=== PATIENT | male | born 1985 | race Caucasian/White ===

== ENCOUNTER 2023-11-21 22:53 | Emergency (ER) | payer MEDICAID, SELFPAY ==
[2023-11-21] VITALS (13 sets, daily range): BP systolic 77–132; BP diastolic 42–74; PULSE 75–85; RESP 11–19; TEMP 36.6; O2SAT 88–99
--- NOTE | 2023-11-21 22:45 | DI.RAD_ITS ---
Exam(s) XR PORTABLE CHEST AP EXAM: XR PORTABLE CHEST AP CLINICAL HISTORY: cough, overdose with vomiting TECHNIQUE: 2D digital imaging was performed. COMPARISON: No exams were available for comparison FINDINGS: Exam is limited by leads overlying the chest. LUNGS: Clear. No pleural abnormality seen. HEART: Normal size. AORTA: Normal diameter. BONES: Unremarkable for age. Soft tissues: Unremarkable. IMPRESSION: No acute findings. DATA REPOSITORY: RADIATION DOSE DELIVERED:
--- NOTE | 2023-11-21 22:45 | RT.EKG_ITS ---
APPROVED REPORT Exam: Resting ECG Reason for Exam: overdose Patient Location: E HR:79 bpm ECG Measurements Heart Rate 79 AXIS UT 169 P 54 QRSd 91 QRS 59 QT 383 T 26 QTc 440 Conclusion Sinus rhythm...normal P axis, V-rate 60- [address] segment or t wave abnormalities to suggest occlusive PR
[2023-11-21 23:06] LABS: BE (Venous) -2 mmol/L (-2-3); HCO3 (Venous) 24 mmol/L (23-28); O2 Sat (Venous) 85 %; TCO2 (Venous) 22 mmol/L (24-29); pCO2 (Venous) 48 mmHg (41-51); pH (Venous) 7.32 (7.31-7.41); pO2 (Venous) 50 mmHg
[2023-11-21 23:09] LABS: Abs Immature Grans 0.04 10^3/uL (0.0-0.06); Absolute Basophil Count 0.02 10^3/uL (0.0-0.2); Absolute Eosinophil Count 0.07 10^3/uL (0.0-0.7); Absolute Lymphocyte Count 1.78 10^3/uL (1.2-3.4); Absolute Monocyte Count 0.34 10^3/uL (0.1-0.8); Absolute Neutrophil Count 3.19 10^3/uL (1.2-6.7); Basophils % 0.4; Eosinophils % 1.3; HCT 38.2 % (40.0-50.0); HGB 12.9 g/dL (13.5-17.5); Immature Grans % 0.7; Lymphocytes % 32.7; MCH 28.5 pg (27.0-33.0); MCHC 33.8 % (32.0-36.0); MCV 84 fL (80-95); MPV 10.2 fL (8.0-11.0); Monocytes % 6.3; Neutrophils % 58.6; Platelet Count 193 10^3/uL (130-400); RBC 4.53 10^6/uL (4.36-5.78); RDW 12.6 % (11.8-14.1); RDW-SD 38.2 fL; WBC 5.44 10^3/uL (4.4-10.8)
[2023-11-21] MEDS: Ondansetron 4 MG/2 ML VIAL IVP (23:13)
[2023-11-21 23:23] LABS: ALT 53 U/L (16-63); AST 40 U/L (15-37); Albumin 3.9 g/dL (3.4-5.0); Alkaline Phosphatase 78 U/L (46-116); Anion Gap 12.9 mmol/L (3-11); BUN 12 mg/dL (7-18); Bilirubin, Total 0.3 mg/dL (0.2-1.0); CO2 26.1 mmol/L (21.0-32.0); CREATININE 1.3 mg/dL (0.70-1.30); Calcium 8.4 mg/dL (8.5-10.1); Chloride 98 mmol/L (98-107); Estimated GFR 72.56 (mL/min/1.73m2); Glucose 285 mg/dL (74-106); Potassium 3.1 mmol/L (3.5-5.1); Sodium 137 mmol/L (136-145); Total Protein 6.9 g/dL (6.4-8.2)
[2023-11-21] MEDS: Normal Saline 1,000 ML 1000 ML IV (23:41)
--- NOTE | 2023-11-21 23:55 | DI.VRAD_ITS ---
PROCEDURE INFORMATION: Exam: XR Chest Exam date and time: 11/21/2023 11:11 PM Age: 38 years old Clinical indication: Patient HX: Cough, od with vomiting TECHNIQUE: Imaging protocol: Radiologic exam of the chest. Views: 1 view. COMPARISON: No relevant prior studies available. FINDINGS: Lungs: Unremarkable. No consolidation. Pleural spaces: Unremarkable. No pleural effusion. No pneumothorax. Heart/Mediastinum: Unremarkable. No cardiomegaly. Bones/joints: Unremarkable. IMPRESSION: No acute findings. Dictated and Authenticated by: Mino Ni MD. Ordering:ANTHONY Mcdowell MD
[2023-11-22] VITALS (73 sets, daily range): BP systolic 71–140; BP diastolic 37–80; PULSE 50–94; RESP 12–25; O2SAT 88–100
--- NOTE | 2023-11-22 00:35 | W.ED.GENAD ---
Discharge Plan Discharge Details Chief Complaint: OD/Poison Primary Care Provider: None,None ED Provider: July Guajardo [facility] General Mode of arrival: EMS. Date/Time Provider Initiated Documentation: 11/21/23 22:59. Limitations to Documentation: altered mental status. Information obtained by: patient and EMS. HPI Narrative: 38yo M unknown past medical history presenting via EMS for unresponsiveness. Bystander found patient unresponsive in bathroom, called 911; on their arrival he was unresponsive, hypoxic to 60's, needle in his arm and drug paraphenalia present. Treated with one dose of intranasal narcan and provided with BVM which improved his sat to 90+. Subsequently somewhat more responsive with some respiratory effort; given 1mg IV Narcan after which he became more alert. Would not answer questions regarding drug ingestion. Did vomit during transport. Rousable to touch on arrival, provides no medical history but will answer yes/no ROS questions; denies chest pain or shortness of breath at any point, denies nausea currently. No fevers, chills, abdominal pain, numbness, weakness, or other concerns. General Stated Complaint: OD/Poison FRED: 3 Review of Systems Narrative: see HPI Exam Narrative Exam Narrative: General: Eyes closed, resonsive to touch. Head: Normocephalic, atraumatic Neck: Trachea midline, ?Neck supple. ENT: ?MMM.? Cardiac: ?RRR, no murmurs appreciated Resp: No respiratory distress. CTAB. +cough Abd: ?Soft, non-distended, nontender : ?No suprapubic tenderness. Extremities: ?No deformities.? No peripheral edema. Neuro: ? GCS 13.(E3 V4 M6). ? PERRL.? EOMI.? Motor- 5/5 strength symmetric bilateral upper and lower extremities Sensation- ?Intact to light touch and symmetric multiple dermatomes including upper and lower extremities Course Vital Signs Vital signs: Vital Signs Temperature 36.6 C 11/21/23 22:55 Pulse 78 11/21/23 22:55 Respiratory Rate 18 11/21/23 22:55 Blood Pressure 132/74 11/21/23 22:55 Pulse Oximetry 94 11/21/23 22:55 Temperature 36.6 C 11/21/23 22:55 Temperature Source Tympanic 11/21/23 22:55 Pulse 72 11/22/23 00:31 Pulse 74 11/22/23 00:31 Respiratory Rate 13 11/22/23 00:31 Respiratory Effort Normal 11/21/23 22:59 Blood Pressure 76/45 L 11/22/23 00:31 Blood Pressure Mean 53 11/22/23 00:31 Pulse Oximetry 97 11/22/23 00:31 Oxygen Delivery Method Room Air 11/21/23 22:55 Oxygen Flow Rate 0 11/21/23 22:55 Pain Level 0 11/21/23 22:55 Lab/Test Results Lab/Test Results: Laboratory Tests Range/Units 11/21/23 23:00 WBC (4.4-10.8) 10^3/uL 5.44 RBC (4.36-5.78) 10^6/uL 4.53 Hgb (13.5-17.5) g/dL 12.9 L Hct (40.0-50.0) % 38.2 L MCV (80-95) fL 84 MCH (27.0-33.0) pg 28.5 MCHC (32.0-36.0) % 33.8 RDW (11.8-14.1) % 12.6 Plt Count (130-400) 10^3/uL 193 MPV (8.0-11.0) fL 10.2 Immature Gran % 0.7 Neutrophils % 58.6 Lymphocytes % 32.7 Monocytes % 6.3 Eosinophils % 1.3 Basophils % 0.4 Nucleated RBC % (0.0-0.3) % 0.0 Absolute Neutrophils (1.2-6.7) 10^3/uL 3.19 Absolute Lymphocytes (1.2-3.4) 10^3/uL 1.78 Absolute Monocytes (0.1-0.8) 10^3/uL 0.34 Absolute Eosinophils (0.0-0.7) 10^3/uL 0.07 Absolute Basophils (0.0-0.2) 10^3/uL 0.02 VBG pH (7.31-7.41) 7.32 VBG pCO2 (41-51) mmHg 48 VBG pO2 mmHg 50 VBG HCO3 (23-28) mmol/L 24 VBG Total CO2 (24-29) mmol/L 22 L VBG O2 Saturation % 85 VBG Base Excess (-2-3) mmol/L -2 Sodium (136-145) mmol/L 137 Potassium (3.5-5.1) mmol/L 3.1 L Chloride (98-107) mmol/L 98 Carbon Dioxide (21.0-32.0) mmol/L 26.1 Anion Gap (3-11) mmol/L 12.9 H BUN (7-18) mg/dL 12 Creatinine (0.70-1.30) mg/dL 1.3 Est GFR (CKD-EPI 2020) (mL/min/1.73m2) 72.56 Glucose (74-106) mg/dL 285 H Calcium (8.5-10.1) mg/dL 8.4 L Total Bilirubin (0.2-1.0) mg/dL 0.3 AST (15-37) U/L 40 H ALT (16-63) U/L 53 Alkaline Phosphatase (46-116) U/L 78 Total Protein (6.4-8.2) g/dL 6.9 Albumin (3.4-5.0) g/dL 3.9 Medical Decision Making 38yo M unknown past medical history presenting via EMS for unresponsiveness. Bystander found patient unresponsive in bathroom, called 911; on their arrival he was unresponsive, hypoxic to 60's, needle in his arm and drug paraphenalia present. Treated with one dose of intranasal narcan and provided with BVM which improved his sat to 90+. Subsequently somewhat more responsive with some respiratory effort; given 1mg IV Narcan after which he became more alert. Did vomit during transport. GCS 13 on arrival, minimally participatory in history or exam, arousable to touch. Within limitations of participation, no focal neurologic deficits. History and exam on arrival consistent with overdose; unlikely seizure, trauma, infection. Vital signs reassuring on arrival. EKG SR, appropriate intervals, no ST segment or T wave abnormalities to suggest occlusive PA. CXR independently reviewed, no focal pneumonia or indication of aspiration on my view; agree with radiology read below. Labs reviewed as below, CBC with mild anemia at 12.9, CMP with hypokalemia to 3.1 (oral replacement ordered for when patient more awake) as well elevated blood glucose at 285. Bicarb 26, not DKA. Plan to observe in the ED and allow time to metabolize substances, monitor for recurrence. -On reassessment blood pressure now borderline hypotensive 80-90's/40-'s/50's; does improve with MAP > 65when patient is awakened. Given 2L IVFB without significant change in pressure or pattern (continues to improve when roused). Will give small dose of IV Narcan 0.2mg and see if this helps. -After narcan more alert, normotensive, however did begin vomiting again consistent with withdrawal. Given zofran. Subsequently resting comfortably. -On reassessment becoming hypoxic while asleep, 89& on 6L NC. Given additional 0.1 mg narcan with good effect, appropriate sat on room air, BP with acceptable MAP. Plan to observe 4 hours post-narcan; if does not require further intervention would discharge home. Otherwise at this point need to consider admission. Signed out to oncoming physican. Imaging Data Radiologic Study: Imaging: X-Ray Radiologist's impression: IMPRESSION: No acute findings Lab Data Lab results reviewed: Yes I reviewed the patient's lab results. Labs: Laboratory Tests Range/Units 11/21/23 23:00 WBC (4.4-10.8) 10^3/uL 5.44 RBC (4.36-5.78) 10^6/uL 4.53 Hgb (13.5-17.5) g/dL 12.9 L Hct (40.0-50.0) % 38.2 L MCV (80-95) fL 84 MCH (27.0-33.0) pg 28.5 MCHC (32.0-36.0) % 33.8 RDW (11.8-14.1) % 12.6 Plt Count (130-400) 10^3/uL 193 MPV (8.0-11.0) fL 10.2 Immature Gran % 0.7 Neutrophils % 58.6 Lymphocytes % 32.7 Monocytes % 6.3 Eosinophils % 1.3 Basophils % 0.4 Nucleated RBC % (0.0-0.3) % 0.0 Absolute Neutrophils (1.2-6.7) 10^3/uL 3.19 Absolute Lymphocytes (1.2-3.4) 10^3/uL 1.78 Absolute Monocytes (0.1-0.8) 10^3/uL 0.34 Absolute Eosinophils (0.0-0.7) 10^3/uL 0.07 Absolute Basophils (0.0-0.2) 10^3/uL 0.02 VBG pH (7.31-7.41) 7.32 VBG pCO2 (41-51) mmHg 48 VBG pO2 mmHg 50 VBG HCO3 (23-28) mmol/L 24 VBG Total CO2 (24-29) mmol/L 22 L VBG O2 Saturation % 85 VBG Base Excess (-2-3) mmol/L -2 Sodium (136-145) mmol/L 137 Potassium (3.5-5.1) mmol/L 3.1 L Chloride (98-107) mmol/L 98 Carbon Dioxide (21.0-32.0) mmol/L 26.1 Anion Gap (3-11) mmol/L 12.9 H BUN (7-18) mg/dL 12 Creatinine (0.70-1.30) mg/dL 1.3 Est GFR (CKD-EPI 2020) (mL/min/1.73m2) 72.56 Glucose (74-106) mg/dL 285 H Calcium (8.5-10.1) mg/dL 8.4 L Total Bilirubin (0.2-1.0) mg/dL 0.3 AST (15-37) U/L 40 H ALT (16-63) U/L 53 Alkaline Phosphatase (46-116) U/L 78 Total Protein (6.4-8.2) g/dL 6.9 Albumin (3.4-5.0) g/dL 3.9 Quality:[facility] Health Related Social Needs: No Data to Display [facility] Social History Smoking risk assessment performed?: No Details: unable to obtain Additional Social history: unable to obtain
[2023-11-22] MEDS: Normal Saline 1,000 ML 1000 ML IV (01:07)
[2023-11-22] MEDS: Naloxone 0.4 MG/ML VIAL 0.2 MG IVP (03:23)
[2023-11-22] MEDS: Ondansetron 4 MG/2 ML VIAL (03:37)
--- NOTE | 2023-11-22 03:37 | NUR.NOTE ---
after Narcan was given the PT woke up and vomited. Nursing Note:
[2023-11-22] MEDS: Naloxone 0.4 MG/ML VIAL 0.1 MG IVP (05:19)
[2023-11-22] MEDS: Potassium Chloride 20 MEQ TABCR 40 MEQ PO (07:10)
--- NOTE | 2023-11-22 07:15 | W.EDPROG ---
Date of service: 11/22/23 Time of Service: 07:20 Medical Decision Making At 0720 patient awakened, become mildly agitated, stated he had to leave for work. Did not want to remain in the ED for further observation. Left AMA. Narcan sent to his pharmacy. Discharge instructions were reviewed with patient who verbalized understanding. Quality:[facility] Health Related Social Needs: No Data to Display Discharge Plan Disposition Patient Disposition: Against Medical Advice Condition: Good Discharge Details Clinical Impression: Overdose Primary Care Provider: None,None ED Provider: July Guajardo Home Meds and New Rx's Prescriptions: New naloxone [Narcan] 4 mg/actuation spray,non-aerosol 4 mg intranasal Q2M PRNQty: 2 0RF Rx Instructions: spray 1 dose into ONE nostril; alternate nostrils w each dose until help arrives Discharge Instructions Instructions: Opioid Use Disorder (ED) Additional Instructions: I would like you to stay and be observed for 4 hours after your last dose of narcan but you have chosen to leave. It is possible the opiates will resume their effect after the narcan wears off and you could stop breathing again and . Do not use illicit drugs. If EMS had not gotten to you tonight, you would have . If you do use drugs, make sure the people around you have narcan and know how to use it. You can not give it to yourself. Call your PCP to schedule an appointment to followup on your visit today. Return to the emergency department for new or worsening symptoms.
== END 2023-11-22 07:56 | disposition left against medical advice (07) ==
PROVIDERS: Emergency Provider Student in an Organized Health Care Education/Training Program
DX: F11.20 Opioid dependence, uncomplicated (principal); R11.10 Vomiting, unspecified; T40.2X1A Poisoning by other opioids, accidental (unintentional), initial encounter
CPT/HCPCS: 00123; 80053; 82805; 93005; 96361; 96374; 96375; 96376; 99284; 71045; 85025; 93010; 99283; J2310; J2405

== ENCOUNTER 2023-12-28 11:36 | Emergency (ER) | payer MEDICAID, SELFPAY ==
[2023-12-28 11:39] VITALS: BP 130/83; PULSE 83; RESP 15; TEMP 36.7; O2SAT 95
[2023-12-28 12:01] VITALS: RESP 15
--- NOTE | 2023-12-28 12:02 | ED.GENADUL_ITS ---
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 ED Provider: Enoc Hawk Home Meds and New Rx's Prescriptions: New prednisone 20 mg tablet 60 mg PO DAILY 4 Days Qty: 12 0RF Continued naloxone [Narcan] 4 mg/actuation spray,non-aerosol 4 mg intranasal Q2M PRNQty: 2 0RF Rx Instructions: spray 1 dose into ONE nostril; alternate nostrils w each dose until help arrives Discharge Instructions Additional Instructions: Wear the splint until your symptoms improve Follow-up with your primary care provider within 1 to 2 weeks If you feel more ill or have new symptoms such as high fevers return to the emergency department for reevaluation HPI General Mode of arrival: ambulatory . Date/Time Provider Initiated Documentation: 12/28/23 11:44 . Limitations to Documentation: no limitations . Information obtained by: patient . History of Present Illness 38 year old M presents to the emergency department with the chief complaint of left arm numbness, described as moderate, Patient started experiencing this day(s) (4) and it has been constant. No relieving factors improve symptom(s), No exacerbating factors reported . Patient notes denies chest pain, fever/chills and shortness of breath. Related Data Home Medications Medication Instructions Recorded Confirmed naloxone 4 mg/actuation nasal 4 mg intranasal Q2M PRN #2 ea 11/22/23 12/28/23 spray (Narcan) prednisone 20 mg tablet 60 mg (3 x 20 mg) PO DAILY 4 days 12/28/23 #12 tabs Previous Rx's Medication Instructions Recorded naloxone 4 mg/actuation nasal 4 mg intranasal Q2M PRN #2 ea 11/22/23 spray (Narcan) prednisone 20 mg tablet 60 mg (3 x 20 mg) PO DAILY 4 days 12/28/23 #12 tabs Allergies Allergy/AdvReac Type Severity Reaction Status Date / Time No Known Allergies Allergy Unverified 12/28/23 11:44 General Stated Complaint: Vascular FRED: 3 Review of Systems All systems reviewed & are unremarkable except as noted in HPI and below Constitutional Constitutional: Denies chills and Denies fever(s) Eyes Eyes: Denies loss of vision ENT Ears, Nose, Mouth, and Throat: Denies change in voice Cardiovascular Cardiovascular: Denies chest pain and Denies dyspnea Respiratory Respiratory: Denies cough and Denies dyspnea Gastrointestinal Gastrointestinal: Denies abdominal pain, Denies nausea and Denies vomiting Genitourinary Genitourinary: Denies dysuria Musculoskeletal Musculoskeletal: Denies joint swelling Integumentary/Breasts Skin/Breast: Denies rash Neurologic Neurologic: Denies loss of vision Exam Const General: no acute distress Orientation: alert [facility] Head: normal to inspection Ears: external ears normal General nose exam: external nose normal Mouth: moist mucous membranes Eyes General: appearance normal, both eyes and all related structures Neck Neck: normal visual inspection Resp Effort & Inspection: normal respiratory effort and able to speak in complete sentences Cardio Rate: regular rate Skin General skin exam: no rashes or lesions noted Neuro General: patient alert and patient oriented x3 Extrem General: capillary refill normal Psych Mental Status: mental status grossly normal Course Vital Signs Vital signs: Vital Signs Temperature 36.7 C 12/28/23 11:39 Pulse 83 12/28/23 11:39 Respiratory Rate 15 12/28/23 11:39 Blood Pressure 130/83 12/28/23 11:39 Pulse Oximetry 95 12/28/23 11:39 Temperature 36.7 C 12/28/23 11:39 Temperature Source Temporal Artery Scan 12/28/23 11:39 Pulse 83 12/28/23 11:39 Respiratory Rate 15 12/28/23 12:01 Respiratory Effort Normal 12/28/23 12:01 Respiratory Depth Normal 12/28/23 12:01 Respiratory Pattern Normal 12/28/23 12:01 Blood Pressure 130/83 12/28/23 11:39 Blood Pressure Position Sitting 12/28/23 11:39 Pulse Oximetry 95 12/28/23 11:39 Oxygen Delivery Method Room Air 12/28/23 11:39 Oxygen Flow Rate 0 12/28/23 11:39 Pain Level 0 12/28/23 12:01 Medical Decision Making 38-year-old male with a history of prior substance abuse comes in with several days of weakness and numbness in the left arm. Denies any vision changes, changes in speech, difficulty ambulating. He is alert and oriented x 4 and arrival speaking clearly, cranial nerves II through XII are intact, has no drift,. She has subjective loss of sensation on the dorsum of the left hand otherwise intact sensation. He has weakness with the wrist extensor and has wrist drop on exam he has full strength of his triceps does have weakness in thumb abduction. The arm is not swollen, there is no rashes, though peripheral pulses are equal and 2+. The he denies having any recent prolonged pressure on the arm, his symptoms do fit with a radial neuropathy. He has no other findings on exam to suggest CVA. He has no neck pain or tenderness to suggest cervical radiculopathy and has no fevers to suggest spinal epidural abscess. Will provide him a wrist splint, he will follow-up with his primary care provider and will trial a short course of steroids. Differential Diagnosis Differential Diagnosis: Radial neuropathy, peripheral neuropathy Quality:SDOH Health Related Social Needs: No Data to Display PFSH All Active Problems (Updated 12/28/23 @ 12:07 by Enoc Hawk MD) Neuropathy of left radial nerve (Acute) Social History Smoking/Tobacco Use Status: Current every day Tobacco Type: cigarettes and e- cigarettes Smoking risk assessment performed?: Yes Alcohol Intake: never Substance use type: does not use Details: unable to obtain Additional Social history: unable to obtain
[2023-12-28] MEDS: methylPREDNISolone SUCC 125 MG VIAL IM (12:14)
== END 2023-12-28 12:24 | disposition home or self-care (01) ==
LOC: ER 12:14
PROVIDERS: Emergency Provider Emergency Medicine
DX: S54.22XA Injury of radial nerve at forearm level, left arm, initial encounter (principal); W18.2XXA Fall in (into) shower or empty bathtub, initial encounter; Y93.89 Activity, other specified; Y92.012 Bathroom of single-family (private) house as the place of occurrence of the external cause
CPT/HCPCS: 96372; 99284; 99283; J2919

== ENCOUNTER 2024-12-16 14:03 | Emergency (ER) | payer MEDICAID, SELFPAY ==
[2024-12-16] VITALS (51 sets, daily range): BP systolic 121–196; BP diastolic 52–107; PULSE 54–85; RESP 11–38; TEMP 37.9; O2SAT 90–99
--- NOTE | 2024-12-16 14:00 | RT.EKG_ITS ---
APPROVED REPORT Exam: Resting ECG Reason for Exam: irregular heart rate Patient Location: E HR:71 bpm ECG Measurements Heart Rate 71 AXIS NV 151 P 76 QRSd 81 QRS 72 QT 445 T 78 QTc 486 Conclusion Sinus rhythm 71 normal axis no stemi
[2024-12-16] MEDS: Naloxone 0.4 MG/ML VIAL IVP ×2 (14:35→14:44)
[2024-12-16 14:37] LABS: Abs Immature Grans 0.05 10^3/uL (0.0-0.06); Absolute Basophil Count 0.01 10^3/uL (0.0-0.2); Absolute Neutrophil Count 11.58 10^3/uL (1.2-6.7); Basophils % 0.1 %; HGB 15.5 g/dL (13.5-17.5); Immature Grans % 0.4 %; Lymphocytes % 11.3 %; MCH 28.4 pg (27.0-33.0); MCHC 34.4 % (32.0-36.0); MCV 82 fL (80-95); MPV 10.9 fL (8.0-11.0); Monocytes % 7.1 %; Neutrophils % 81.1 %; Platelet Count 233 10^3/uL (130-400); RBC 5.46 10^6/uL (4.36-5.78); RDW 12.4 % (11.8-14.1); RDW-SD 37.5 fL; WBC 14.28 10^3/uL (4.4-10.8)
--- NOTE | 2024-12-16 14:38 | W.ED.GENAD ---
Discharge Plan Disposition Condition: Stable Discharge Details Chief Complaint: Nausea/Vomit/Diar Clinical Impression: Vomiting, Polysubstance abuse Primary Care Provider: Unknown,Unknown ED Provider: Eren Cross Home Meds and New Rx's Prescriptions: New ondansetron 4 mg tablet,disintegrating 4 mg PO Q6H PRN (Reason: nausea and vomiting) Qty: 30 0RF No Action naloxone [Narcan] 4 mg/actuation spray,non-aerosol 4 mg intranasal Q2M PRNQty: 2 0RF Rx Instructions: spray 1 dose into ONE nostril; alternate nostrils w each dose until help arrives HPI General Date/Time Provider Initiated Documentation: 12/16/24 14:14. Limitations to Documentation: no limitations. Information obtained by: patient. HPI Narrative: 39-year-old gentleman with past medical history of substance use disorder presents for evaluation of vomiting. He reports that he had been sober from opiates for some time but yesterday he used heroin. He reports that he has been vomiting since that time. He denies any abdominal pain. He received some droperidol from EMS that has resolved his vomiting. Related Data Home Medications ?Medication ?Instructions ?Recorded ?Confirmed naloxone 4 mg/actuation nasal 4 mg intranasal Q2M PRN #2 ea 11/22/23 12/28/23 spray (Narcan) ondansetron 4 mg disintegrating 4 mg PO Q6H PRN nausea and 12/16/24 tablet vomiting #30 tabs Previous Rx's ?Medication ?Instructions ?Recorded naloxone 4 mg/actuation nasal 4 mg intranasal Q2M PRN #2 ea 11/22/23 spray (Narcan) ondansetron 4 mg disintegrating 4 mg PO Q6H PRN nausea and 12/16/24 tablet vomiting #30 tabs Allergies Allergy/AdvReac Type Severity Reaction Status Date / Time No Known Allergies Allergy Unverified 12/16/24 14:13 General Stated Complaint: Nausea/Vomit/Diar FRED: 3 Exam Narrative Exam Narrative: Review of Systems: All systems reviewed & are unremarkable except as noted in HPI and below Well-developed NCAT pupils 1mm RRR Unlabored respiratory effort, CTAB Nondistended abdomen , soft non tender sitting in bed with head down, eyes closed, responds to voice command to raise head and open eyes, but promptly goes back to sleep Course Vital Signs Vital signs: Vital Signs Pulse 68 12/16/24 14:04 Respiratory Rate 16 12/16/24 14:04 Blood Pressure 196/97 H 12/16/24 14:04 Pulse Oximetry 95 12/16/24 14:04 Pulse 68 12/16/24 14:10 Respiratory Rate 16 12/16/24 14:10 Blood Pressure 196/97 H 12/16/24 14:10 Pulse Oximetry 95 12/16/24 14:10 Medical Decision Making Emergent evaluation of vomiting in the setting of substance use. Patient reports that he last used IV narcotics yesterday. He denies any use today. Though in symptoms and mental status do seem concerning for recent opiate use. He did receive droperidol by EMS and this could be what is causing him to be sleepy, but do not suspect that that would be causing his pinpoint pupils. He is not hypoxic or having any signs of respiratory respiratory distress. Will monitor closely, continue fluids and lab work to evaluate for acute intra-abdominal process. Patient remains hypertensive but otherwise hemodynamically stable. His lab work was reviewed. There is some mild leukocytosis, no anemia. His BUN is slightly elevated at 25 and therefore slightly elevated anion gap I suspect some mild dehydration. Lipase is not elevated so no evidence of pancreatitis. Alcohol level is negative. The patient has been resuscitated with IV fluids. At the time of signout, he is pending p.o. challenge. Patient has also requested to speak with tissue recovery technician. Anticipate discharge home with antiemetics. Quality:SDOH Health Related Social Needs: No Data to Display PFSH All Active Problems (Updated 12/16/24 @ 16:44 by Eren Cross MD) Polysubstance abuse (Acute) Vomiting (Acute) Social History Smoking/Tobacco Use Status: Current every day Tobacco Type: cigarettes and e-cigarettes Smoking risk assessment performed?: Yes Alcohol Intake: never Substance use type: heroin Details: unable to obtain Additional Social history: unable to obtain
[2024-12-16 14:40] LABS: Absolute Lymphocyte Count 1.61 10^3/uL (1.2-3.4); Absolute Monocyte Count 1.01 10^3/uL (0.1-0.8)
[2024-12-16 14:55] LABS: ALT 33 U/L (16-63); AST 25 U/L (15-37); Albumin 4.6 g/dL (3.4-5.0); Alkaline Phosphatase 71 U/L (46-116); Anion Gap 13.2 mmol/L (3-11); BUN 25 mg/dL (7-18); CO2 25.8 mmol/L (21.0-32.0); CREATININE 1.1 mg/dL (0.70-1.30); Calcium 9.5 mg/dL (8.5-10.1); Chloride 99 mmol/L (98-107); Estimated GFR 88.12 (mL/min/1.73m2); Glucose 145 mg/dL (74-106); Lipase 10 U/L (<78); Magnesium 1.8 mg/dL (1.8-2.4); Potassium 3.7 mmol/L (3.5-5.1); Sodium 138 mmol/L (136-145); Total Protein 7.9 g/dL (6.4-8.2)
[2024-12-16] MEDS: Normal Saline 1,000 ML 1000 ML IV (14:58)
[2024-12-16 15:18] LABS: ETHANOL BLOOD < 3.0 mg/dL (<10)
[2024-12-16] MEDS: Pantoprazole 40 MG VIAL IVP (15:38)
[2024-12-16] MEDS: Normal Saline 50 ML (15:44)
[2024-12-16 16:56] LABS: *AMPHETAMINES SCREEN URINE Negative (Negative); *BARBITURATES SCREEN URINE Negative (Negative); *BENZODIAZEPINES SCREEN URINE Negative (Negative); Cannabinoids THC Positive (Negative); Cocaine Screen,Urine Positive (Negative); METHADONE URINE SCREEN Negative (Negative); OPIATES URINE SCREEN Negative (Negative)
[2024-12-16 16:58] LABS: Tricyclic Antidepressants Negative (Negative)
--- NOTE | 2024-12-16 20:20 | ED.PROG_ITS ---
Date of service: 12/16/24 Time of Service: 17:00 Medical Decision Making This is a 39-year-old male patient with a past medical history notable for polysubstance use, recent heroin use, presenting via EMS for vomiting. At the time that I took over his care, he had had a reassuring laboratory evaluation with a mild leukocytosis, and evidence of dehydration with a BUN of 25. He had received Zofran as well as Narcan for alteration in mental status, was protecting his airway, and had a benign examination of his abdomen. He is pending metabolization, meeting with the recovery coaches, and p.o. challenge. The patient met with the recovery coaches, but remained quite sleepy on my initial evaluation, but after a few hours of rest was able to get up on his own, ambulate, and tolerated some water and crackers. A prescription for Zofran has been sent to his pharmacy, and I did provide him with some Tylenol for a low- grade fever. I certainly considered substance use and effects, gastroenteritis, gastritis. The patient remains with a benign examination, and I recommended that he follow-up in the outpatient environment for ongoing management of his symptoms. At this time, the patient has had a full medical evaluation and is safe for discharge to home. They are hemodynamically stable, ambulatory, and tolerating PO. They are understanding of the follow-up plan and return precautions. They left our facility without incident. Kaylie Tavarez MD Medical Records Medical records reviewed: Yes I reviewed the patient's medical records. Lab Data Lab results reviewed: Yes I reviewed the patient's lab results. Quality:SDOH Health Related Social Needs: No Data to Display Discharge Plan Disposition Patient Disposition: Home Condition: Stable Discharge Details Clinical Impression: Vomiting, Polysubstance abuse Primary Care Provider: Unknown,Unknown ED Provider: Kaylie Tavarez Home Meds and New Rx's Prescriptions: New ondansetron 4 mg tablet,disintegrating 4 mg PO Q6H PRN (Reason: nausea and vomiting) Qty: 30 0RF No Action naloxone [Narcan] 4 mg/actuation spray,non-aerosol 4 mg intranasal Q2M PRNQty: 2 0RF Rx Instructions: spray 1 dose into ONE nostril; alternate nostrils w each dose until help arrives Discharge Instructions Instructions: Nausea and vomiting in adults Additional Instructions: You were seen in the emergency department today for evaluation of nausea and vomiting, as well as some altered mental status after opioid use. In our department you had a full physical examination performed, you had a reassuring workup including labs, and did receive medications to support your consciousness and breathing, and a prescription for nausea medication was sent. Please follow-up with your primary care provider in the next few days to discuss this visit and any symptoms that change, worsen, or persist. Thank you for allowing us to be part of your care.
[2024-12-16] MEDS: Ondansetron O.D.T. 4 MG TABEF, 3 TABS/BTL PO (20:37)
[2024-12-16] MEDS: Acetaminophen 500 MG TAB 1000 MG PO (20:38)
== END 2024-12-16 20:44 | disposition home or self-care (01) ==
PROVIDERS: Emergency Medicine; Emergency Provider Emergency Medicine
DX: R11.10 Vomiting, unspecified (principal); F19.10 Other psychoactive substance abuse, uncomplicated; F17.210 Nicotine dependence, cigarettes, uncomplicated; F17.290 Nicotine dependence, other tobacco product, uncomplicated
CPT/HCPCS: 00123; 36415; 80053; 80307; 83690; 93005; 96361; 96374; 96375; 99284; 80320; 83735; 85025; 93010; J2310; J2470

== ENCOUNTER 2025-01-29 12:05 | Inpatient (IN) | payer MEDICAID, SELFPAY ==
[2025-01-29] VITALS (33 sets, daily range): BP systolic 108–190; BP diastolic 55–86; PULSE 53–105; RESP 5–29; TEMP 36.1–36.9; O2SAT 96–100; BMI 21.6
--- NOTE | 2025-01-29 12:07 | W.ED.GENAD ---
Discharge Plan Discharge Details Chief Complaint: DrugWithdr/MAT Clinical Impression: Opiate withdrawal, Infected finger Primary Care Provider: Unknown,Unknown ED Provider: Clovis Lawson [facility] General Date/Time Provider Initiated Documentation: 01/29/25 12:07. HPI Narrative: MDM This is an well-appearing afoaf-mbcz-kqfluewc 39 male with dominant dorsal ommubj-xbda-bbu erythema tenderness swelling concerning for possibility of osteomyelitis versus joint infection for which patient underwent x-rays. Will engage with orthopedics. Will send inflammatory markers. Given tachycardia on arrival I covered for sepsis with piperacillin tazobactam and vancomycin following blood cultures.. Patient refuses to participate in examination. He has difficulty flexing and extending his right middle finger at the DIP and PIP joints. There is also circumferential swelling. It is difficult to assess whether or not there is pain with percussion over the flexor tendon sheath though given dorsal injury my suspicion for flexor tenosynovitis is lower. No fractures on x-ray. In the absence of chest pain I was not concerned for endocarditis I did not draw 3 sets of blood cultures. No shortness of breath to suggest PE. His tachycardia could be driven by his withdrawal versus his finger infection. 3:30 PM Patient's COWS Score was 9 for which I treated him with buprenorphine naloxone at 8 mg sublingual and ondansetron. I sent a WebEx to Dr. Crespo. I called the [facility] program in [facility]. They did not yet have the patient enrolled in our system. He is due for initiation of treatment in 2 days. 4:52 PM I signed patient out to Dr. Vang pending orthopedics consult. HPI This is a patient with a history of substance use disorder presenting with withdrawal symptoms. The patient has an appointment scheduled for methadone treatment on , with a planned starting dose of 50 mg. He has been off methadone for over a month, having previously used it. A month ago, he was on Suboxone, a treatment he had been using for 13 years, but discontinued its use as it was not effective for him. Following this, he began using intravenous drugs, although he has abstained for the past few days. He is currently experiencing withdrawal symptoms, including nausea and vomiting. He expresses a desire to avoid meeting with a learning coach. He is interested in trying hydroxyzine or clonidine as part of his treatment plan. The patient also reports a third-degree burn on his right middle finger and has been to urgent care for this issue. He reports that his burn was several weeks ago from welding. Exam General: Well-appearing in no acute distress speaking in complete sentences. Head: Normocephalic, atraumatic. Eye: Extraocular eye movements intact. No conjunctival injection. No scleral icterus. Ear, nose, mouth, throat: Grossly normal inspection. Normal voice, handling secretions normally. Neck: Trachea midline. Cardiovascular: Well-perfused distal extremities. Regular rate and rhythm. No murmurs. Respiratory: Nonlabored respiration. Clear lungs bilaterally. Gastrointestinal: Nondistended abdomen. Musculoskeletal: No Janeway lesions. On the dorsal aspect of the right long finger overlying the radial aspect of the DIP joint there is an erythematous area with signs of pus. There is swelling of the finger primarily on the dorsal but also on the palmar aspect. Patient does not participate in testing of strength and sensation. He has diffuse tenderness when touching this finger. On the ulnar aspect of the left index finger there is erythema and mild tenderness history of the following photo: Skin: Normal for age and race, grossly normal temperature and turgor. No acute rash. Neurologic: Alert and appropriate, no apparent acute deficits. Psychiatric: Mood and manner are appropriate. Grooming and personal hygiene are appropriate. Related Data Allergies Allergy/AdvReac Type Severity Reaction Status Date / Time No Known Allergies Allergy Verified 01/29/25 12:15 General FRED: 3 PFSH All Active Problems (Updated 01/29/25 @ 16:28 by Clovis Lawson MD) Infected finger (Acute) Opiate withdrawal (Acute) Social History Smoking/Tobacco Use Status: Current every day Tobacco Type: cigarettes and e-cigarettes Smoking risk assessment performed?: Yes Alcohol Intake: never Drug use: Daily Substance use type: crack/cocaine, heroin, opiates and IV drugs Details: unable to obtain Housing: homeless Additional Social history: unable to obtain
--- NOTE | 2025-01-29 13:18 | DI.RAD_ITS ---
Exam(s) XR FINGER RT MIDDLE EXAM: XR FINGER RT MIDDLE CLINICAL HISTORY: infection. TECHNIQUE: 2D digital imaging was performed. Three views. COMPARISON: No exams were available for comparison FINDINGS: The exam is limited by overlap of the fingers on the oblique view. BONES: No acute fracture is present. No bony destructive lesion is seen. JOINTS: No dislocation present. The flexion deformity at the distal interphalangeal joint which is not well profiled. There is narrowing of the joint. SOFT TISSUE: Diffuse swelling. No foreign body or abnormal gas collection. IMPRESSION: Soft tissues swelling and flexion deformity at DIP joint. Narrowing of the joint but no bony erosions. DATA REPOSITORY: RADIATION DOSE DELIVERED:
[2025-01-29 14:03] LABS: Abs Immature Grans 0.14 10^3/uL (0.0-0.06); HCT 37.9 % (40.0-50.0); HGB 13.3 g/dL (13.5-17.5); Immature Grans % 1.0 %; MCH 27.8 pg (27.0-33.0); MCHC 35.1 % (32.0-36.0); MCV 79 fL (80-95); MPV 11.3 fL (8.0-11.0); Platelet Count 289 10^3/uL (130-400); RBC 4.79 10^6/uL (4.36-5.78); RDW 12.1 % (11.8-14.1); RDW-SD 34.7 fL; WBC 14.17 10^3/uL (4.4-10.8)
[2025-01-29 14:09] LABS: ESR 54 mm/hr (0-15)
[2025-01-29] MEDS: Nicotine 4 MG GUM CH ×2 (14:15→23:48)
[2025-01-29 14:19] LABS: RBC Morphology Normal
[2025-01-29] MEDS: hydrOXYzine HCL 25 MG TAB PO (14:19)
[2025-01-29] MEDS: Ketorolac 15 MG/ML VIAL IVP (14:20)
[2025-01-29] MEDS: Normal Saline 1,000 ML 1000 ML IV (14:21)
[2025-01-29] MEDS: ACETAMINOPHEN 1,000 MG/100 ML BTL 400 MG IVPB (14:25)
[2025-01-29 14:29] LABS: Anion Gap 9.4 mmol/L (3-11); BUN 12 mg/dL (7-18); C-Reactive Protein 10.28 mg/dL (<or=0.5); CO2 29.6 mmol/L (21.0-32.0); Calcium 9.1 mg/dL (8.5-10.1); Chloride 93 mmol/L (98-107); Estimated GFR 126.72 (mL/min/1.73m2); Glucose 96 mg/dL (74-106); Potassium 3.2 mmol/L (3.5-5.1); Sodium 132 mmol/L (136-145)
[2025-01-29] MEDS: VANCOMYCIN/WATER (PEG) 1.5 GM/300 ML BAG IVPB (15:13)
[2025-01-29] MEDS: PIPERACILLIN/TAZO 3.375 GM in Normal Saline 50 ML IVPB ×2 (15:20→22:19)
[2025-01-29] MEDS: Ondansetron 4 MG/2 ML VIAL IVP ×2 (15:46→19:03)
[2025-01-29] MEDS: Buprenorphine/Naloxone 8 mg/2 mg FILM 1 EACH SL (15:53)
[2025-01-29] MEDS: diazePAM 5 MG TAB PO (17:47)
--- NOTE | 2025-01-29 17:54 | W.ORTHOCONSU ---
Date of service: 01/29/25 Time of Service: 17:30 History of Present Illness History of Present Illness Chief Complaint: Right Middle Finger Infection Narrative: Timur is a 39-year-old who reportedly burned the dorsum of his right middle finger and a portion of the dorsal radial aspect of the right index finger while welding a few weeks ago. He reports going to express care although there is no report in the system that he has been to express care for this injury. He has a longstanding history of polysubstance abuse. He has been on Suboxone previously but stopped this. He has been utilizing IV drugs and has a history of also using heroin and crack cocaine. He reports last using about 2 days ago and has had some nausea today with dry heaving. He has had these symptoms in the past. He is actually scheduled to meet with the [facility] clinic on to potentially resume methadone. He has noted that the area of the burn about the right middle finger has become more swollen and more painful and is draining purulent fluid. This is gotten particular worse over the past few days. He has not taken anything for this. He has received cefepime and vancomycin in the emergency department. He reports pain globally about the finger. He refuses to actively use it and refuses any significant palpation or passive exam. Consults Consult date: 01/29/25 Requesting physician: Clovis Lawson Consult Reason Right finger infection Assessment and Plan Assessment and plan (1) Septic arthritis of interphalangeal joint of finger of right hand: Status: Acute Assessment and plan: Timur is a 39-year-old who has an obviously infected DIP joint of the right middle finger. While he hurts throughout the entirety of the finger he does not have any clear-cut Nabel findings of a flexor tenosynovitis. He does have pain but he does not truly have fusiform swelling he does not have extension of erythema, he does not have pain over the flexor tendon proximally. He is holding the finger in an extended position and not a flexed position. His exam is limited but I do think this represents a mallet deformity from either injury to the extensor tendon at the time of the welding injury versus erosion of the tendon with the infection and an open draining wound of the DIP joint representing septic arthritis of the DIP joint of the right middle finger. He has been started antibiotics. I recommend proceeding the operating room for irrigation debridement. I would also likely pin the DIP joint in extension in hopes that he may regain some natural extension of the finger with the extensor tendon. Continue broad-spectrum antibiotics and will default to the medicine team for narrowing based on culture results. Due to OR timing and the current n.p.o. status, I recommend we proceed to the operating tonight. Timur was not pleased with this answer as he wanted to be admitted with dinner and then have surgery tomorrow. However, I was very clear with him that we need to get to this to soon as possible and tonight's when we can go. All of his questions were answered. I reviewed the surgery with him. Per his request this will be done with anesthesia. He was very adamant this cannot be done with local only. I explained to him the technical details. I did review risks to include bleeding, continued infection, continued deformity of the finger, need for repeat procedures. (2) Mallet deformity of right middle finger: Status: Acute Assessment and plan: Per above (3) Infected finger: Status: Acute (4) Opiate withdrawal: Status: Acute Assessment and plan: Had discussed case with the medicine team. At this point I will move forward with admitting and getting to the operating room this evening and ask for their assistance in management of his opiate withdrawal with likely transfer further care moving forward based on the surgical findings. Review of Systems All systems reviewed & are unremarkable except as noted in HPI and below PFSH All Active Problems (Updated 01/29/25 @ 18:21 by Easton Crespo MD) Mallet deformity of right middle finger (Acute) Septic arthritis of interphalangeal joint of finger of right hand (Acute) Infected finger (Acute) Opiate withdrawal (Acute) Social History Smoking/Tobacco Use Status: Current every day Tobacco Type: cigarettes and e-cigarettes Smoking risk assessment performed?: Yes Alcohol Intake: never Drug use: Daily Substance use type: crack/cocaine, heroin, opiates and IV drugs Details: unable to obtain Housing: homeless Additional Social history: unable to obtain Exam Narrative Exam Narrative: Sitting in the wheelchair. [place] himself around the room. Alert and oriented x 3. No acute distress. Evaluation of the right hand shows an area of skin discoloration over the dorsalulnar aspect of the right index finger. This area is blanchable. It does not appear to be full-thickness but there is no exposed deep tissue. No sign of infection. On the middle finger there is an open area over the dorsal radial aspect of the middle finger at the level of the DIP joint extension creases. There is gross purulent material draining from this area. There is notable drooping of the finger of about 50 degrees. There is also some slight hyperextension of the PIP joint. There is some generalized swelling of the finger although not fusiform swelling. There is no significant erythema except for just around the area over the dorsum of the middle finger. He limits examination. Any palpation of the finger causes exquisite pain. He reports this is both dorsal and palmar. He will not participate in examination to allow any passive motion of the finger and he will not demonstrate any active motion of the finger. There is no pain on the flexor tendon within the palm. There is no palmar mass there is no deep tissue concern about the wrist or the palm. Sensation intact light touch of the median, radial, ulnar nerve. Palpable radial pulse. Results Last Vital Signs Temp 36.7 C 01/29/25 12:08 Pulse 61 01/29/25 15:50 Resp 13 01/29/25 15:50 BP 148/66 H 01/29/25 15:46 Pulse Ox 100 01/29/25 15:50 Labs 01/29/25 13:50 01/29/25 13:50 Labs: Laboratory Results - last 24 hr 01/29/25 01/29/25 01/29/25 13:50 14:20 14:57 WBC 14.17 H RBC 4.79 Hgb 13.3 L Hct 37.9 L MCV 79 L MCH 27.8 MCHC 35.1 RDW 12.1 Plt Count 289 MPV 11.3 H Immature Gran % 1.0 Neutrophils % 66.5 Lymphocytes % 15.2 Monocytes % 16.9 Eosinophils % 0.2 Basophils % 0.2 Nucleated RBC % 0.0 Absolute Neutrophils 9.42 H Absolute Lymphocytes 2.15 Absolute Monocytes 2.39 H Absolute Eosinophils 0.03 Absolute Basophils 0.03 RBC Morphology Normal ESR 54 H VBG Lactate 1.6 Sodium 132 L Potassium 3.2 L Chloride 93 L Carbon Dioxide 29.6 Anion Gap 9.4 BUN 12 Creatinine 0.6 L Est GFR (CKD-EPI 2020) 126.72 Glucose 96 Calcium 9.1 C-Reactive Protein 10.28 H ABO/Rh O Positive Antibody Screen NEGATIVE Imaging Imaging Studies: X-ray of the right middle finger shows a flexed digit at the DIP joint with slight hyperextension of the PIP joint. No bony erosions are appreciated. Soft tissue defect is seen on the x-ray.
--- NOTE | 2025-01-29 18:35 | ANES.PREOP_ITS ---
General Info Date of Service Date Performed: 01/29/25 Height: 5 ft 11 in Weight: 70.307 kg Body Mass Index (BMI): 21.6 Meds Allergies and Home Medications Allergies Allergy/AdvReac Type Severity Reaction Status Date / Time No Known Allergies Allergy Verified 01/29/25 12:15 [facility] Active Problems Active Problems: Problem Status Onset Code Mallet deformity of right middle finger Acute M20.011 Septic arthritis of interphalangeal joint of finger of right hand Acute M00.9 Infected finger Acute L08.9 Opiate withdrawal Acute F11.93 Tobacco Smoking/Tobacco Use Status: Current every day Tobacco Type: cigarettes and e- cigarettes Alcohol Alcohol Intake: never Substance Use Substance use: Daily Substance use type: crack/cocaine, heroin, opiates and IV drugs Details: Reports last use three days ago Vital Signs and Lab Results Vital Signs Most Recent Vital Signs in EMR: Most Recent Vital Signs Temp Pulse Resp BP Pulse Ox 36.7 C 61 13 148/66 H 100 01/29/25 12:08 01/29/25 15:50 01/29/25 15:50 01/29/25 15:46 01/29/25 15:50 Lab Results 01/29/25 13:50 01/29/25 13:50 Blood Type / Crossmatch: 2 Antibody Screen NEGATIVE Today Complete Blood Count: 2 WBC, (4.4-10.8) 14.17 10^3/uL H Today, 13:50 RBC, (4.36-5.78) 4.79 10^6/uL Today, 13:50 Hgb, (13.5-17.5) 13.3 g/dL L Today, 13:50 Hct, (40.0-50.0) 37.9 % L Today, 13:50 Plt Count, (130-400) 289 10^3/uL Today, 13:50 VBG Lactate, (<or=2.0) 1.6 mmol/L Today, 14:20 Complete Metabolic Panel: 2 Sodium, (136-145) 132 mmol/L L Today, 13:50 Potassium, (3.5-5.1) 3.2 mmol/L L Today, 13:50 Chloride, (98-107) 93 mmol/L L Today, 13:50 Carbon Dioxide, (21.0-32.0) 29.6 mmol/L Today, 13:50 BUN, (7-18) 12 mg/dL Today, 13:50 Creatinine, (0.70-1.30) 0.6 mg/dL L Today, 13:50 Est GFR (CKD-EPI 2020), (mL/min/1.73m2) 126.72 Today, 13:50 Calcium, (8.5-10.1) 9.1 mg/dL Today, 13:50 Glucose, (74-106) 96 mg/dL Today, 13:50 C-Reactive Protein, (<or=0.5) 10.28 mg/dL H Today, 13: 50 Imaging and Studies Imaging and Studies Study information below may be from another EMR and interpreted by another provider. Please see original notes in EMR for more complete details. EKG Summary: EKG PATIENT NAME: Timur Baldwin UNIT #: [id number] ORDERING PROVIDER: Eren Cross M.D. PRIMARY CARE PROVIDER: UNKNOWN,UNKNOWN DATE/TIME OF SERVICE: 12/16/24 1406 : 1985 PERFORMING LOCATION: ER APPROVED REPORT Exam: Resting ECG Reason for Exam: irregular heart rate Patient Location: E HR:71 bpm ECG Measurements Heart Rate 71 AXIS OR 151 P 76 QRSd 81 QRS 72 QT 445 T78 QTc 486 Conclusion Sinus rhythm 71 normal axis no stemi - <Electronically signed by Eren Cross M.D. in [place]> E-Sign Date: 12/16/24 E-Sign Time: 1432 ADDENDUM APPROVED REPORT Exam: Resting ECG Reason for Exam: irregular heart rate Patient Location: E HR:71 bpm ECG Measurements Heart Rate 71 AXIS OR 151 P 76 QRSd 81 QRS 72 QT 445 T78 QTc 486 Conclusion Sinus rhythm 71 normal axis no stemi I have reviewed and I agree with the emergency room physician's ECG interpretation. Electronically signed by: <Electronically signed by Veronica Whitley M.D. in [place]> 12/18/24 0756 Cosigned by: Anesthesia Assessment and Plan Anesthesia History Personal History: No History of Anesthesia Complications Family History: No Family History of Anesthesia Complications Exercise Tolerance Exercise Tolerance: Metabolic Equivalents>4 Pertinent Negatives Pertinent Negatives: No Symptoms of GERD Cardiac & Pulmonary Exam Cardiac Exam: Normal S1/S2 Heart Sounds Pulmonary Exam: Clear Bilateral Breath Sounds Implantable Cardiac Device Does patient have a Pacemaker or an ICD?: No Airway Exam Known Difficult Airway: No Mallampati Class: 2 Mouth Opening: Normal (> 3cm) Thyromental Distance: Greater than 3 cm Neck Range of Motion: Limited ROM Neck Circumference: Normal Teeth Condition: Edentulous ASA Classification ASA Score: ASA 2 Emergency Case?: Yes NPO Status NPO Status: NPO Clears >2 hours, Solids >8 hours Anesthesia Plan Resuscitation Status: Full Code Anesthesia Technique: General Anesthesia Airway Planned: Natural Airway Monitors Used: Standard Monitors
--- NOTE | 2025-01-29 19:15 | DI.RAD_ITS ---
Exam(s) XR HAND RT LIMITED EXAM: XR HAND RT LIMITED CLINICAL HISTORY: INFECTED RIGHT HAND. TECHNIQUE: 2D and realtime digital imaging was performed. COMPARISON: CR XR FINGER RT MIDDLE from 01/29/2025 FINDINGS: A hard copy image shows placement of a pin through the distal and middle phalanges. Please see procedure note for details. Fluoro time: 10seconds RADIATION DOSE DELIVERED: Kar=0.43 mGy
[2025-01-29] MEDS: Lactated Ringers 1,000 ML 30 ML IV (19:45)
--- NOTE | 2025-01-29 20:04 | NUR.NOTE ---
Patient was transferred to the [facility] for surgical procedure.Hand off given to [facility] you Nurse CHRIST Saenz
--- NOTE | 2025-01-29 20:30 | W.PM.OP ---
Operative Note Operative Note PRE-OP DIAGNOSIS: Septic DIP joint, right middle finger POST-OP DIAGNOSIS: same PROCEDURE: Irrigation and debridement of right middle finger including the DIP joint Reduction of the DIP joint with transarticular pinning SURGEON: Easton Crespo ANESTHESIA TYPE: Local By Surgeon and General:No Airway Refer to Anesthesia Record PATHOLOGY: other (Aerobic anaerobic cultures sent from the DIP joint of the right middle finger) TOURNIQUET TIME: 0 COMPLICATIONS: None Indications: Timur is a 39-year-old male, [id number]-bjsbcyfd, who suffered a burn to the dorsum of his right middle finger primarily which has resulted in a septic arthritis of the DIP joint. Given these findings I recommended proceeding to the operating room for debridement of the DIP joint of the right middle finger as well as stabilization of the joint given notable deformity with an incompetent extensor tendon. I reviewed the procedure details. I discussed the risk to include continued infection, bleeding, pain, stiffness, need for repeat procedures. Despite these risk, he elects to proceed. Findings: There was a 1 cm diameter defect over the dorsal radial aspect of the DIP joint. There was bone and frayed radial lateral band at the base of the wound with gross purulence. Culture samples were taken. The DIP joint was grossly unstable and this pinned across the DIP joint into the proximal phalanx. Procedure Description: Timur was greeted in the preoperative holding area. His identity was confirmed the correct side was identified and marked. The consent was reviewed with the patient and signed. He was taken back to the operating room, On a stretcher with the right hand placed onto a hand table. A general anesthetic was administered. The right hand was prepped with Betadine and draped in the standard fashion. Prophylactic and biotics were held due to recent antibiotics in the emergency department as well as for culture. A timeout was performed for safe surgery. There was a defect seen over the dorsal radial aspect of the finger at the DIP joint. This was debrided of any eschar which showed about a 1 cm defect with exposed tendon at the base. There was necrotic material as well which was debrided sharply. The bone of the distal phalanx and the head of the middle phalanx was palpable and the DIP joint was grossly unstable and visible. I took anaerobic and aerobic culture swabs from DIP joint. I then sharply debrided necrotic tissue. There were frayed edges of the lateral band of the radial side. There was sloughing of the epidermis which was debrided back. There is no real fullness of the flexor tendon sheath palmarly. Milking of the flexor tendon sheath did not produce any material within the DIP joint. There were no other open wounds. I then irrigated this aggressively with 1 L of normal saline. The wound was clean. Given the instability of the DIP joint and the incompetence of the extensor mechanism I placed a single 0.062 inch K wire from the tip of the finger through the DIP joint into the base of the middle phalanx. Fluoroscopy was utilized to confirm appropriate positioning of the wire. I reapproximated the edges of the incision extension. However, the tissue at the level of the defect was quite poor and cannot be closed. There was a sub-1 cm diameter defect. The K wire was cut and a Shawn ball was placed. This area was then cleaned and dressed with Xeroform, 4 x 4, conform dressing. Date of Procedure: 01/29/25
--- NOTE | 2025-01-29 20:43 | W.ANESPOSTOP ---
Postoperative Evaluation Date, Time and Location Date Performed: 01/29/25 Time Performed: 20:39 Patient Location: PACU Vital Signs Most Recent Imported Vital Signs: Most Recent Vital Signs Temp Pulse Resp BP Pulse Ox 36.5 C 63 10 L 189/76 H 98 01/29/25 20:35 01/29/25 20:35 01/29/25 20:35 01/29/25 20:35 01/29/25 20:35 Pain Score Most Recent Pain Score: Most Recent Pain Score Pain Level 0 01/29/25 20:35 Assessment Mental Status: Arousable with meaningful communication Airway and Respiratory Function: Patent airway with normal (patient baseline) respiratory exam Cardiovascular Function: Hemodynamically Stable Hydration Status: Adequately Hydrated Nausea & Vomiting: Active Nausea or Vomiting Present Nausea and Vomiting Management: Nausea and vomiting active, being managed as an inpatient (Dry heaving) Pain: Pt. Denies Any Pain Peripheral Nerve Block: Patient did not receive a nerve block
--- NOTE | 2025-01-29 21:41 | W.MEDCONSULT ---
Date of service: 01/29/25 Time of Service: 21:41 Assessment and Plan Assessment and plan (1) Septic arthritis of interphalangeal joint of finger of right hand: Start date: 01/29/25 Status: Acute Assessment and plan: This is a 39-year-old gentleman admitted to orthopedics status post debridement of complicated wound of the right index finger. He will continue on IV Zosyn and vancomycin and we will follow the patient medically. He has a substance use disorder and is actively using. He is not on any chronic prescribed medications other than rescue inhaler and he takes his cousins Remeron which will be continued. He will be watched closely for a chronic withdrawal but will receive pain management with oral oxycodone and symptom management with antiemetics. Benzodiazepines will be avoided. Patient is a full code. (2) Severe substance use disorder: Status: Chronic Assessment and plan: Urine drug screens were performed patient will be treated with oxycodone orally which can be advanced to higher dose if needed for pain management. He also is on antiemetics with nausea and vomiting possibly being secondary to narcotic withdrawal. If he is vomiting clonidine will be difficult to use along with hydroxyzine which he agreed to in the ED. Long-term he needs to reinitiate Suboxone or methadone maintenance therapy. Prognosis is poor with patient having poor insight. He does admit to some illicit drug use and possibly is using unknown drugs with his resources. Supportive care. Long-term counseling would be appropriate. [facility] review did reveal fairly consistent Suboxone treatment after 1 month ago. (3) Hypokalemia: Start date: 01/29/25 Status: Acute Assessment and plan: Oral supplementation and this most likely is secondary to deficient with patient for nutritional status. He is thin and with his illicit drug use may not eat properly. This will most likely only be needed during his hospital stay. Adequate diet should be reviewed before discharge. (4) Tobacco use disorder: Status: Chronic Assessment and plan: Nicotine gum as needed with patient agreeable. Long-term tobacco cessation would be appropriate with a history of asthma. (5) Asthma: Status: Chronic Assessment and plan: Rescue inhaler therapy as needed while hospitalized. 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 He should talk to his PCP about formal treatment and monitoring. He did obtain this medication from his family which is an appropriate. This is consistent with his self treatment risk and WADE. History of Present Illness History of Present Illness Chief Complaint: Welding burn to right hand weeks ago. Narrative: This is a 39-year-old male patient with history of substance use disorder which is active being off his usual maintenance Suboxone for least 1 month. He does have plans for reinitiating chronic opioid treatment but recently has been active using street medications. He does admit to smoking fentanyl and THC. He also smokes tobacco. He reports to the ED because of increasing pain in his right index finger and less so in the second finger with an open wound over his distal joint of the index finger. He was seen in the ED and there is a question of osteomyelitis by imaging and exam. Dr. Crespo did see the patient has debrided the wound. He is on IV antibiotic therapy which will be continued. There is some concern of narcotic withdrawal and the patient will receive pain management with oxycodone while recovering from his wound but could be converted to Suboxone which he was on in the past once we are sure that his chronic narcotic use is not extensive which may precipitate worsening withdrawal symptoms with his antagonist component. The patient is not interested in clonidine or Atarax at this time and is asking for something to calm him down having received Valium in the ED. His insight is poor. He does appear slightly tremulous and anxious with a flattened affect during conversation when interviewed. His history is somewhat wandering and insight is poor. The patient was found to be hypokalemic with oral supplement being given otherwise he is on minimal meds as an outpatient though he does take his cousin's Remeron 30 mg nightly for with his insomnia and he does have a risk inhaler he takes occasionally. As that he does smoke tobacco. We have been asked to consult medically on this patient with possible narcotic withdrawal and the patient is on a COWS monitoring for withdrawal. He is having some nausea and tremulousness which is being treated symptomatically. He did have 1 dose of sublingual Ativan after admitted but benzodiazepines will be avoided. If he stops having emesis clonidine could be initiated. As stated, control of his hand pain with oral oxycodone temporarily after surgery should be helpful with any narcotic withdrawal symptoms. Urine drug screens were performed. Patient said VPMS did reveal consistent treatment with Suboxone up to 1 month ago. Patient is a full code. Review of Systems Narrative: 13 point review of systems otherwise unrevealing or stable. Patient is a poor historian. PFSH All Active Problems (Updated 01/30/25 @ 09:20 by Spencer Ibarra) Hypokalemia (Acute) Tobacco use disorder (Chronic) 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 Exam Narrative Exam Narrative: General: Patient appears older than stated age, flattened affect with poor eye contact. He is in moderate distress from his hand pain postdebridement. He is alert and oriented x 3. HEENT: Normocephalic with coarsened facial features, eyes with pupils equal and reactive to light symmetrically, extraocular movement intact and sclera anicteric. Oropharynx with moist mucosa and poor dentition. Neck: Supple without JVD. Back: Stooped posture, no CVA tenderness. Lungs: Bronchovesicular breath sound diffusely with no expiratory wheeze but slightly prolonged expiratory phase. No focalizing rales or rhonchi. Fair aeration. Heart: Regular rate and rhythm with no murmurs gallops appreciated. Abdomen: Scaphoid contour, soft with slight discomfort to deep palpation over the epigastrium which patient states is from vomiting. There is no guarding or rebound. No palpable hepatosplenomegaly. Bowel sounds positive in all quadrants. Genitalia/rectal: Exam deferred. Extremities: Without clubbing, cyanosis or pitting edema. Right hand wound is bandaged status post debridement of the index finger DIP. (See picture of wounds and ED note). Fair capillary refill. Skin: Skin changes over right hand with burn wounds and open ulcerative on the index finger, otherwise moist, and warm with normal color. Neuro: Cranial nerves II through XII gross intact, no focal motor deficits or focalizing tremor. Patient is anxious with occasional tics. Psych: Anxious with depressed mood. No abnormal thought processes. Patient does wander in conversation. Remote and recent memory grossly intact with patient being a poor historian. Results Last Vital Signs Temp 36.9 C 01/29/25 20:55 Pulse 60 01/29/25 20:55 Resp 18 01/29/25 20:55 BP 167/75 H 01/29/25 20:55 Pulse Ox 96 01/29/25 20:55 Labs 01/30/25 06:35 01/30/25 06:35 Labs: Laboratory Results - last 24 hr 01/29/25 01/29/25 01/29/25 13:50 14:20 14:57 WBC 14.17 H RBC 4.79 Hgb 13.3 L Hct 37.9 L MCV 79 L MCH 27.8 MCHC 35.1 RDW 12.1 Plt Count 289 MPV 11.3 H Immature Gran % 1.0 Neutrophils % 66.5 Lymphocytes % 15.2 Monocytes % 16.9 Eosinophils % 0.2 Basophils % 0.2 Nucleated RBC % 0.0 Absolute Neutrophils 9.42 H Absolute Lymphocytes 2.15 Absolute Monocytes 2.39 H Absolute Eosinophils 0.03 Absolute Basophils 0.03 RBC Morphology Normal ESR 54 H VBG Lactate 1.6 Sodium 132 L Potassium 3.2 L Chloride 93 L Carbon Dioxide 29.6 Anion Gap 9.4 BUN 12 Creatinine 0.6 L Est GFR (CKD-EPI 2020) 126.72 Glucose 96 Calcium 9.1 C-Reactive Protein 10.28 H ABO/Rh O Positive Antibody Screen NEGATIVE Imaging Imaging Studies: EXAM: XR FINGER RT MIDDLE Date of exam: 01/29/2025 CLINICAL HISTORY: infection. TECHNIQUE: 2D digital imaging was performed. Three views. COMPARISON: No exams were available for comparison FINDINGS: The exam is limited by overlap of the fingers on the oblique view. BONES: No acute fracture is present. No bony destructive lesion is seen. JOINTS: No dislocation present. The flexion deformity at the distal interphalangeal joint which is not well profiled. There is narrowing of the joint. SOFT TISSUE: Diffuse swelling. No foreign body or abnormal gas collection. IMPRESSION: Soft tissues swelling and flexion deformity at DIP joint. Narrowing of the joint but no bony erosions.
[2025-01-29] MEDS: oxyCODONE 5 MG TAB PO (21:43)
[2025-01-29 22:13] LABS: Magnesium 2.0 mg/dL (1.8-2.4)
[2025-01-29] MEDS: Mirtazapine 15 MG TAB 30 MG PO (22:18)
[2025-01-29] MEDS: Normal Saline Flush 10 ML SYR (22:50)
[2025-01-30] MEDS: Ketorolac 15 MG/ML VIAL IVP ×2 (03:25→07:58)
[2025-01-30] MEDS: VANCOMYCIN 1,500 MG in Normal Saline 250 ML 167 MG IVPB (03:47)
[2025-01-30] MEDS: Water,Injection,Sterile 10 ML VIAL (03:53)
[2025-01-30] MEDS: LORazepam 2 MG/1 ML Oral Concentrate 1 MG PO (04:31)
[2025-01-30] MEDS: Metoclopramide 10 MG/2 ML VIAL IVP (04:31)
[2025-01-30] MEDS: Normal Saline Flush 10 ML SYR ×2 (06:00→07:58)
[2025-01-30] MEDS: PIPERACILLIN/TAZO 3.375 GM in Normal Saline 50 ML IVPB ×2 (06:01→11:28)
[2025-01-30 07:32] LABS: HCT 39.8 % (40.0-50.0); HGB 13.8 g/dL (13.5-17.5); MCH 27.7 pg (27.0-33.0); MCHC 34.7 % (32.0-36.0); MCV 80 fL (80-95); MPV 11.1 fL (8.0-11.0); Platelet Count 343 10^3/uL (130-400); RBC 4.98 10^6/uL (4.36-5.78); RDW 12.2 % (11.8-14.1); RDW-SD 35.2 fL; WBC 13.63 10^3/uL (4.4-10.8)
[2025-01-30 07:40] LABS: ALT 50 U/L (16-63); AST 23 U/L (15-37); Albumin 3.1 g/dL (3.4-5.0); Alkaline Phosphatase 66 U/L (46-116); Anion Gap 9.5 mmol/L (3-11); BUN 8 mg/dL (7-18); Bilirubin, Total 0.4 mg/dL (0.2-1.0); CO2 29.5 mmol/L (21.0-32.0); Calcium 9.0 mg/dL (8.5-10.1); Chloride 94 mmol/L (98-107); Estimated GFR 120.95 (mL/min/1.73m2); Glucose 156 mg/dL (74-106); Magnesium 1.9 mg/dL (1.8-2.4); Sodium 133 mmol/L (136-145); Total Protein 7.3 g/dL (6.4-8.2)
[2025-01-30 07:43] LABS: Potassium 2.7 mmol/L (3.5-5.1)
[2025-01-30] MEDS: Potassium Chloride 20 MEQ TABCR PO (07:57)
[2025-01-30] MEDS: Acetaminophen 500 MG TAB 1000 MG PO (07:57)
--- NOTE | 2025-01-30 08:52 | PDOC.CMIN ---
Date of service: 01/30/25 Time of Service: 08:52 Care Management Initial Assmt Initial Assessment Reason for Hospitalization: infected finger Functional Status/Living Situation Town of Residence: [facility] Resides with: Alone Instrumental Activities of Daily Living (ADLs): Independent Medications Medication Management: No Issues/Barriers identified Physical Functioning/Mobility Assistive Device: none Advance Directives Advance Directives: Do you have an Advance Directive: N 11/22/23, 07:38 AD On File at [facility]: N 11/21/23, 22:48 Date Asked 01/29/25 Today, 08:39 AD Date Reviewed COLST On File at [facility] COLST Date Scanned Code Status Resuscitation Status Full Code Portal Pt does not currently have a portal and education provided: Yes Insurance Coverage/Financial Issues Insurance: Medicaid Care Team Visit Care Team Role Provider Type Donald Patricio MD MD [facility] STAFF PHYSICIAN Unknown Unknown Primary Care Provider STAFF PHYSICIAN Clovis Lawson MD Emergency Provider [facility] STAFF PHYSICIAN Easton Crespo MD Admit Provider [facility] STAFF PHYSICIAN Attending Provider Discharge Potential Discharge Needs: Other (will need to establish with a PCP) Anticipated Barriers to Discharge: None Identified Patient/Family Education Needs: Review discharge instructions, discuss Ask Me Three Transportation: RCT Plan: Anticipate Timur will be discharged home with no new services when medically cleared.He will follow up with his Orthopedic surgeon and plan of care and transport via RCT vs private vehicle. CM will follow. Social Determinants of Health Screening Will the Patient Participate in the Screening?: Declined to provide Do you worry about having a steady place to live?: choose not to answer PFSH All Active Problems Tobacco use disorder (Chronic) 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
[2025-01-30 10:53] LABS: Cannabinoids THC Positive (Negative); METHADONE URINE SCREEN Negative (Negative)
[2025-01-30] MEDS: oxyCODONE 5 MG TAB PO (11:29)
--- NOTE | 2025-01-30 12:57 | W.PM.DS.N ---
Date of service: 01/30/25 Time of Service: 08:00 DS: Diagnosis Discharge Diagnosis (1) Septic arthritis of interphalangeal joint of finger of right hand: Status: Acute Asessment and Plan: January 29 debridement of complex right index finger wound IV antibiotic course intended to continue for 5-7 days due to risk of loss of manual function Zosyn, vancomycin while hospitalized Patient's substance use disorder and lack of impulse control presented unreconcilable difficulty for him in being hospitalized He chose to leave in lieu of completing treatment and is at very high risk for worsening of infection and loss of the use of his hand (2) Severe substance use disorder: Status: Chronic Asessment and Plan: UDS positive for fentanyl, cocaine, THC While hospitalized he was given PRN narcotics adequate for prevention of withdrawal as well as for treatment of pain in his hand He had some nausea and vomiting which were managed with PRNs He has been on suboxone treatment in the past; resumption of this program is challenging with his limited resources (3) Hypokalemia: Status: Resolved Asessment and Plan: Repleted, but patient left AMA before recheck (4) Tobacco use disorder: Status: Chronic Asessment and Plan: Nicotine patch given while patient was hospitalized (5) Asthma: Status: Chronic (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 Injury was initially caused by welding, weeks before arrival. He had January 29 debridement of the wound and was continued on IV antibiotics. His withdrawal from fentanyl, cocaine and THC was managed with PRN narcotics. The patient was not willing to stay hospitalized. PO antibiotics were prescribed and the patient was encouraged to do his best, ideally returning to complete acute treatment for the infection that risks the intermediate use of his hand. Home Meds and New Rx's Prescriptions: New sulfamethoxazole-trimethoprim [Bactrim DS] 800-160 mg tablet 1 tab PO Q12H Qty: 60 0RF No Action oxycodone-acetaminophen [Percocet] 5-325 mg tablet 1 tab PO TID PRNQty: 7 0RF Discharge Instructions Stand Alone Forms: Nursing Discharge Form Referrals: Unknown,Unknown [Primary Care Provider, Unknown] Discharge Data Discharge Date/Time-TO BE ENTERED AT DEPARTURE: 01/30/25 13:20 Discharge Comment: Patient dc'd AMA. Discharge instructions provided. DS: Summary Time Spent with Patient providing and/or coordinating discharge services: Less than 30 minutes Status at Discharge Functional status at discharge: independent ambulation Overall status at discharge: patient is not back to baseline Mental Status: other (poor insight, impulses uncontrolled) Speech and Movement: pressured speech and restless Mood: other (poor insight, impulses uncontrolled) Affect: anxious affect and irritable affect Exam Narrative Exam Narrative: Patient not examined due to AMA departure. Psych Mental Status: other (poor insight, impulses uncontrolled) Speech and Movement: pressured speech and restless Mood: other (poor insight, impulses uncontrolled) Affect: anxious affect and irritable affect DS: Data Vitals/I&O Vitals and I&O: Vital Signs Temperature 36.8 C 01/29/25 21:43 Temperature Source Temporal Artery Scan 01/29/25 21:43 Pulse 71 01/29/25 21:43 Pulse Rhythm Regular 01/29/25 20:55 Pulse 70 01/29/25 16:50 Respiratory Rate 18 01/29/25 21:43 Respiratory Effort Normal, Non-Labored 01/29/25 20:55 Respiratory Depth Normal 01/29/25 20:55 Respiratory Pattern Normal 01/29/25 20:55 Blood Pressure 154/81 H 01/29/25 21:43 Blood Pressure Mean 105 01/29/25 21:43 Blood Pressure Position Sitting 01/29/25 12:08 Pulse Oximetry 99 01/29/25 21:43 Respiratory End-tidal CO2 26 01/29/25 20:30 Oxygen Delivery Method Room Air 01/29/25 21:43 Oxygen Flow Rate 0 01/29/25 21:43 Pain Level 9 01/30/25 11:29 Intake & Output 01/29/25 01/30/25 01/30/25 23:59 11:59 23:59 Intake Total 1927 / 1927 102 / 102 Output Total 600 / 600 500 / 500 Balance 1327 / 1327 -398 / -398 Weight 62.142 kg Intake: IV 1926 / 1926 102 / 102 Output: Urine 500 / 500 Emesis 600 / 600 Other: Urine Color Yellow Yellow Urine Appearance Clear Clear Urine Odor None Comment Voided in toilet Emesis Description Bile Data Completed and Pending Labs on day of discharge: Labs from last 24 hours 01/30/25 01/30/25 01/29/25 08:33 06:35 14:57 WBC 13.63 H RBC 4.98 Hgb 13.8 Hct 39.8 L MCV 80 MCH 27.7 MCHC 34.7 RDW 12.2 Plt Count 343 MPV 11.1 H Immature Gran % Neutrophils % Lymphocytes % Monocytes % Eosinophils % Basophils % Nucleated RBC % Absolute Neutrophils Absolute Lymphocytes Absolute Monocytes Absolute Eosinophils Absolute Basophils RBC Morphology ESR VBG Lactate Sodium 133 L Potassium 2.7 L* Chloride 94 L Carbon Dioxide 29.5 Anion Gap 9.5 BUN 8 Creatinine 0.7 Est GFR (CKD-EPI 2020) 120.95 Glucose 156 H Calcium 9.0 Magnesium 1.9 Total Bilirubin 0.4 AST 23 ALT 50 Alkaline Phosphatase 66 C-Reactive Protein Total Protein 7.3 Albumin 3.1 L Urine Opiates Screen Negative Ur Buprenorphine Pending Ur Norbuprenorphine Pending Urine Methadone Screen Negative Urine Fentanyl Screen Pending Ur Barbiturates Screen Negative Ur Tricyclics Screen Negative Ur Amphetamines Screen Negative U Benzodiazepines Scrn Negative Urine Cocaine Screen Positive A Ur THC Screen Positive A Ethyl Alcohol Urine Xylazine Pending ABO/Rh O Positive Antibody Screen NEGATIVE 01/29/25 01/29/25 14:20 13:50 WBC 14.17 H RBC 4.79 Hgb 13.3 L Hct 37.9 L MCV 79 L MCH 27.8 MCHC 35.1 RDW 12.1 Plt Count 289 MPV 11.3 H Immature Gran % 1.0 Neutrophils % 66.5 Lymphocytes % 15.2 Monocytes % 16.9 Eosinophils % 0.2 Basophils % 0.2 Nucleated RBC % 0.0 Absolute Neutrophils 9.42 H Absolute Lymphocytes 2.15 Absolute Monocytes 2.39 H Absolute Eosinophils 0.03 Absolute Basophils 0.03 RBC Morphology Normal ESR 54 H VBG Lactate 1.6 Sodium 132 L Potassium 3.2 L Chloride 93 L Carbon Dioxide 29.6 Anion Gap 9.4 BUN 12 Creatinine 0.6 L Est GFR (CKD-EPI 2020) 126.72 Glucose 96 Calcium 9.1 Magnesium 2.0 Total Bilirubin AST ALT Alkaline Phosphatase C-Reactive Protein 10.28 H Total Protein Albumin Urine Opiates Screen Ur Buprenorphine Ur Norbuprenorphine Urine Methadone Screen Urine Fentanyl Screen Ur Barbiturates Screen Ur Tricyclics Screen Ur Amphetamines Screen U Benzodiazepines Scrn Urine Cocaine Screen Ur THC Screen Ethyl Alcohol < 3.0 Urine Xylazine ABO/Rh Antibody Screen 01/29/25 19:52 Hand - Right Surgical Culture - Pending 01/29/25 14:20 Blood Blood Culture - Pending 01/29/25 13:50 Blood Blood Culture - Pending Preliminary micro results at discharge 01/29/25 19:52 Hand - Right Surgical Culture - Pending 01/29/25 14:20 Blood Blood Culture - Pending 01/29/25 13:50 Blood Blood Culture - Pending PFSH All Active Problems (Updated 02/05/25 @ 06:49 by Donald Patricio MD) Tobacco use disorder (Chronic) 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 Time Spent with Patient Time Spent with Patient: <45 minutes Time was spent: preparing to see the patient(eg.review tests), obtaining and/or reviewing separately otained hiistory, ordering medications,tests, procedures, referring, communicating with other health md do resident urgent care, indepentently interpreting results, counseling the patient and care coordination
--- NOTE | 2025-01-30 13:14 | W.NUTRFU ---
Date of service: 01/30/25 Time of Service: 11:30 Nutrition Note NOTE: met with Timur valeria for initial nutrition assessment. Hx of substance use disorder. States he has housing and appliances/tools to prep meals with. He relates he has unreliable transportation and confirms that his recent experiences include needing to skip meals due to lack of resources/funds for food. States his SNAP benefits were cut off. Will provide info on community connections and alternative sources of food in the community. He relates a 30lb weight loss and the last 1/5 months. He reports no difficulties chewing or swallowing but current lack of dentition observable. He will take boost high kcal/high protein ONS BID at breakfast and dinner for extra nutrition support. Estimated energy needs:2480 (40kcal/kg), 93g protein (1.5g/kg), 2480mL fluid nutrition dx: inadequate intake related to substance abuse, related mental health condition, other environemental and socioeconomic factors, as evidenced by signficant weight loss as reported by patient. Will monitor po intake, weight, ONS toleration/acceptance, Time Spent in Nutritional Counseling and Treatment: 10 min
--- NOTE | 2025-01-30 14:47 | CHAPLAIN ---
I had a brief visit with Timur. He was pleasant and polite. I explained my role and offered support.
--- NOTE | 2025-01-30 15:07 | W.PM.PROGNOT ---
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 He is now status post irrigation debridement with pinning of the DIP joint. We are still awaiting culture results. He is quite insistent that he is leaving today. I took some time to express to Timur Palomo important to obtain IV and to biotics for initial loading and treatment of the infection following the surgery but also to obtain culture results and sensitivities to best direct antibiotic treatment. He seemed willing to stay for these reasons and was going to work on care for his daughters. However, soon thereafter I got a message that he was going to leave immediately and discharge was performed by Dr. Patricio. I will plan to see him back in 3 weeks for a wound check. The pin should stay in for 6 weeks in total to help support the consolidation of the tissue around the DIP joint. It is possible that the wound about the radial aspect of the distal middle finger may not heal given that it is full-thickness down to bone and soft tissues. However, we should give this a chance on its own. He should keep it covered and dressed at all times. This should be changed daily starting at postop day #3. (2) Mallet deformity of right middle finger: Status: Acute (3) Infected finger: Status: Acute Subjective Subjective Interval history since last seen: Timur reports be doing well overall. He has had some soreness about the finger but has been manageable. He has had some nausea and some symptoms of withdrawal which have been managed. He denies any fevers or chills. He is overall happy with the care that he received. He then mentions that he wants to leave soon as possible. He expresses his reason for leaving is to take care of his daughters. No other acute concerns. Exam Narrative Exam Narrative: Sitting up in the chair. No acute distress. Evaluation of the right hand shows some sloughing of the epidermis of the right index finger although no signs of purulence, erythema, or infection. The right middle finger is dressed without drainage. Objective Last Vital Signs Temp 36.8 C 01/29/25 21:43 Pulse 71 01/29/25 21:43 Resp 18 01/29/25 21:43 BP 154/81 H 01/29/25 21:43 Pulse Ox 99 01/29/25 21:43 Laboratory Results - last 24 hr 01/29/25 01/29/25 01/30/25 13:50 14:57 06:35 WBC 13.63 H RBC 4.98 Hgb 13.8 Hct 39.8 L MCV 80 MCH 27.7 MCHC 34.7 RDW 12.2 Plt Count 343 MPV 11.1 H Sodium 133 L Potassium 2.7 L* Chloride 94 L Carbon Dioxide 29.5 Anion Gap 9.5 BUN 8 Creatinine 0.7 Est GFR (CKD-EPI 2020) 120.95 Glucose 156 H Calcium 9.0 Magnesium 2.0 1.9 Total Bilirubin 0.4 AST 23 ALT 50 Alkaline Phosphatase 66 Total Protein 7.3 Albumin 3.1 L Urine Opiates Screen Urine Methadone Screen Ur Barbiturates Screen Ur Tricyclics Screen Ur Amphetamines Screen U Benzodiazepines Scrn Urine Cocaine Screen Ur THC Screen Ethyl Alcohol < 3.0 ABO/Rh O Positive Antibody Screen NEGATIVE 01/30/25 08:33 WBC RBC Hgb Hct MCV MCH MCHC RDW Plt Count MPV Sodium Potassium Chloride Carbon Dioxide Anion Gap BUN Creatinine Est GFR (CKD-EPI 2020) Glucose Calcium Magnesium Total Bilirubin AST ALT Alkaline Phosphatase Total Protein Albumin Urine Opiates Screen Negative Urine Methadone Screen Negative Ur Barbiturates Screen Negative Ur Tricyclics Screen Negative Ur Amphetamines Screen Negative U Benzodiazepines Scrn Negative Urine Cocaine Screen Positive A Ur THC Screen Positive A Ethyl Alcohol ABO/Rh Antibody Screen Time Spent with Patient Time Spent with Patient: <25 minutes Time was spent: preparing to see the patient(eg.review tests), counseling the patient and care coordination
--- NOTE | 2025-01-30 16:38 | PDOC.CMPRO ---
Date of service: 01/30/25 Time of Service: 16:38 Care Management Progress Note Progress Note Text Progress Note Text: Timur signed out against medical advice before CM was able to meet with him. Social Determinants of Health Screening Will the Patient Participate in the Screening?: Declined to provide Do you worry about having a steady place to live?: choose not to answer
[2025-01-31 12:04] LABS: Fentanyl Scr w/Rfx Confirm Positive ng/mL (<1)
[2025-02-01 11:35] LABS: Norfentanyl Confirmation 79 ng/mL (<10); Xylazine, Confirmation Urine Negative ng/mL (<50)
== END 2025-01-30 13:20 | disposition left against medical advice (07) | DRG 513 ==
LOC: ER 12:07 → SUR 19:41 → MS 20:44
PROVIDERS: Family Medicine; Admitting Provider Student in an Organized Health Care Education/Training Program; Emergency Provider Emergency Medicine; Responsible Provider Family Medicine; Visit Provider Student in an Organized Health Care Education/Training Program
PROC: 0RSW04Z Reposition Right Finger Phalangeal Joint with Internal Fixation Device, Open Approach (ICD-10-PCS; CPT 26727; principal; 2025-01-29 19:55)
DX: M00.841 Arthritis due to other bacteria, right hand (principal); F11.93 Opioid use, unspecified with withdrawal; M20.011 Mallet finger of right finger(s); J45.40 Moderate persistent asthma, uncomplicated; F17.210 Nicotine dependence, cigarettes, uncomplicated; F51.05 Insomnia due to other mental disorder; E87.6 Hypokalemia; F14.90 Cocaine use, unspecified, uncomplicated; T23.32 Burn of third degree of single finger (nail) except thumb; V00-Y99 External causes of morbidity
CPT/HCPCS: 26785; 11011; 00123; 36415; 76000; 80048; 80053; 80307; 80348; 80354; 80375; 85027; 85652; 86850; 86900; 86901; 87040; 87077; 96365; 96366; 96367; 96368; 96375; 96376; 99285; 73120; 73140; 80320; 83605; 83735; 85025; 86140; 87070; 87075; 87186; 87205; 99223; J0131; J0665; J1885; J2405; J2543; J2704; J2765; J3373; J3490

== ENCOUNTER 2025-02-01 12:10 | Emergency (ER) | payer MEDICAID, SELFPAY ==
[2025-02-01 12:38] VITALS: BP 149/79; PULSE 108; RESP 20; TEMP 37.3; O2SAT 95
[2025-02-01 14:13] VITALS: BP 116/52; PULSE 89; RESP 18; O2SAT 98
--- NOTE | 2025-02-01 14:17 | W.ED.GENAD ---
Discharge Plan Disposition Patient Disposition: Home Discharge Details Clinical Impression: Septic arthritis of interphalangeal joint of finger of right hand Primary Care Provider: Unknown,Unknown ED Provider: Clovis Lawson Home Meds and New Rx's Prescriptions: New oxycodone-acetaminophen [Percocet] 5-325 mg tablet 1 tab PO TID PRNQty: 7 0RF Continued sulfamethoxazole-trimethoprim [Bactrim DS] 800-160 mg tablet 1 tab PO Q12H Qty: 60 0RF Discontinued oxycodone 10 mg tablet 10 mg PO Q6H PRNQty: 20 0RF Discharge Instructions Additional Instructions: You are seen in the emergency department for your finger pain. Please try not to get your dressing wet. You may begin changing your dressing twice a day starting tomorrow. Orthopedic team will call you for follow-up in 2 weeks. As we discussed if you develop fevers chills nausea or vomiting please return to the emergency department. Please continue taking your antibiotics as previously scheduled. For your pain please take medications as follows: 1. Take acetaminophen (Tylenol), 1,000 mg (two 500 mg tabs) every 6 hours [2. Take ibuprofen (Advil), 400 mg every 6 hours.] HPI General Date/Time Provider Initiated Documentation: 02/01/25 12:55. HPI Narrative: MDM This is an overall well-appearing initially tachycardic but normothermic and not hypotensive male who is 3 days postop status post debridement and drainage and washout of septic arthritis of the IP joints of his right hand. No pain out of proportion to suggest necrotizing soft tissue infection. No foul-smelling drainage to suggest fevers. Patient was initially tachycardic but he did not appear septic so I did not initiate broad-spectrum antibiotics. His wound was appearing to be healing well so I did not feel he required reconsultation with orthopedics. There was signs that the wound had become slightly macerated. We discussed keeping his wound dry. He received wound dressing supplies and education with nursing. He reported ineffective analgesia with the oxycodone he had been prescribed. I recommended short course of Percocet. He has outpatient orthopedic follow-up in several weeks. Of asked health coordinator Carolyn to ensure that he is seen in clinic for a wound check in the next 2 and half weeks. We discussed that he should return to the ED for any streaking signs of infection fever chills nausea or vomiting. He understood his return indications and was discharged with an empiric trial of expectant outpatient management. HPI The patient presents for evaluation of pain. He is currently on a regimen of oxycodone, which he reports as ineffective in managing his pain. The pain is described as a stinging, burning, and throbbing sensation. Additionally, he mentions that the medication is not aiding his sleep. Exam General: Well-appearing in no acute distress speaking in complete sentences. Head: Normocephalic, atraumatic. Eye: Extraocular eye movements intact. No conjunctival injection. No scleral icterus. Ear, nose, mouth, throat: Grossly normal inspection. Normal voice, handling secretions normally. Neck: Trachea midline. Cardiovascular: Well-perfused distal extremities. Respiratory: Nonlabored respiration. Gastrointestinal: Nondistended abdomen. Musculoskeletal: Right long finger underneath dressing that appears slightly wet. Xeroform gauze in place pin in place. No foul-smelling drainage. No streaking signs of infection. Cap refill intact right long finger. Range of motion deferred. Skin: Normal for age and race, grossly normal temperature and turgor. No acute rash. Neurologic: Alert and appropriate, no apparent acute deficits. Psychiatric: Mood and manner are appropriate. Grooming and personal hygiene are appropriate. Related Data Home Medications ?Medication ?Instructions ?Recorded ?Confirmed sulfamethoxazole 800 1 tab PO Q12H #60 tabs 01/30/25 mg-trimethoprim 160 mg tablet (Bactrim DS) oxycodone-acetaminophen 5 mg-325 1 tab PO TID PRN #7 tabs 02/01/25 mg tablet (Percocet) Previous Rx's ?Medication ?Instructions ?Recorded sulfamethoxazole 800 1 tab PO Q12H #60 tabs 01/30/25 mg-trimethoprim 160 mg tablet (Bactrim DS) oxycodone-acetaminophen 5 mg-325 1 tab PO TID PRN #7 tabs 02/01/25 mg tablet (Percocet) Allergies Allergy/AdvReac Type Severity Reaction Status Date / Time No Known Allergies Allergy Verified 02/01/25 12:41 General Stated Complaint: Orthopedic FRED: 3 Course Vital Signs Vital signs: Vital Signs Temperature 37.3 C 02/01/25 12:38 Pulse 108 H 02/01/25 12:38 Respiratory Rate 20 02/01/25 12:38 Blood Pressure 149/79 H 02/01/25 12:38 Pulse Oximetry 95 02/01/25 12:38 Temperature 37.3 C 02/01/25 12:38 Temperature Source Oral 02/01/25 12:38 Pulse 89 02/01/25 14:13 Respiratory Rate 18 02/01/25 14:13 Blood Pressure 116/52 L 02/01/25 14:13 Blood Pressure Mean 73 02/01/25 14:13 Pulse Oximetry 98 02/01/25 14:13 Oxygen Delivery Method Room Air 02/01/25 14:13 Oxygen Flow Rate 0 02/01/25 14:13 Pain Level 10 02/01/25 12:38 PFSH All Active Problems (Updated 02/01/25 @ 14:18 by Clovis Lawson MD) Hypokalemia (Acute) Tobacco use disorder (Chronic) 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
--- NOTE | 2025-02-01 14:42 | NUR.NOTE ---
Nursing Note: this RN did wound care per MD verbal orders educated PT on care and when to f/u with provider
[2025-02-01 14:43] VITALS: BP 143/71; PULSE 90; RESP 18; O2SAT 98
== END 2025-02-01 14:41 | disposition home or self-care (01) ==
PROVIDERS: Emergency Provider Emergency Medicine
DX: M00.9 Pyogenic arthritis, unspecified (principal)
CPT/HCPCS: 99283 ×2

== ENCOUNTER 2025-03-19 10:37 | Emergency (ER) | payer MEDICAID, SELFPAY ==
[2025-03-19 10:41] VITALS: BP 133/84; PULSE 100; RESP 16; TEMP 37.1; O2SAT 97
[2025-03-19 10:48] VITALS: BP 133/84; PULSE 100; RESP 18; TEMP 37.1; O2SAT 97
[2025-03-19] MEDS: oxyCODONE 5 mg/Acetaminophen 325 mg TAB 1 TAB PO (12:19)
[2025-03-19] MEDS: Lidocaine 1% Multi-Dose W/EPI 1/100,000 10 ML VIAL IJ (12:29)
[2025-03-19 12:44] LABS: Abs Immature Grans 0.08 10^3/uL (0.0-0.06); HCT 38.5 % (40.0-50.0); HGB 12.8 g/dL (13.5-17.5); Immature Grans % 0.6 %; MCH 27.4 pg (27.0-33.0); MCHC 33.2 % (32.0-36.0); MCV 82 fL (80-95); MPV 10.3 fL (8.0-11.0); Platelet Count 334 10^3/uL (130-400); RBC 4.67 10^6/uL (4.36-5.78); RDW 14.0 % (11.8-14.1); RDW-SD 41.6 fL; WBC 12.57 10^3/uL (4.4-10.8)
[2025-03-19 12:51] LABS: ESR 31 mm/hr (0-15)
--- NOTE | 2025-03-19 12:55 | W.ED.GENAD ---
Discharge Plan Disposition Patient Disposition: Against Medical Advice Discharge Details Clinical Impression: Infected finger Primary Care Provider: Unknown,Unknown ED Provider: Timmy Gonzalez Home Meds and New Rx's Prescriptions: New linezolid 600 mg tablet 600 mg PO Q12H 28 Days Qty: 56 0RF sulfamethoxazole-trimethoprim [Bactrim DS] 800-160 mg tablet 1 tab PO Q12H Qty: 60 0RF oxycodone-acetaminophen [Percocet] 5-325 mg tablet 1 tab PO Q8H PRNQty: 10 0RF zolpidem [Ambien] 5 mg tablet 5 mg PO QHS PRNQty: 10 0RF Continued sulfamethoxazole-trimethoprim [Bactrim DS] 800-160 mg tablet 1 tab PO Q12H Qty: 60 0RF oxycodone-acetaminophen [Percocet] 5-325 mg tablet 1 tab PO TID PRNQty: 7 0RF gabapentin 100 mg capsule 100 mg PO TID Patient Comments: TAKE ONE CAPSULE BY MOUTH THREE TIMES A DAY clonidine HCl 0.1 mg tablet 0.1 mg PO PRN Patient Comments: TAKE TWO TABLETS BY MOUTH EVERY DAY NEEDED buprenorphine-naloxone [Suboxone] 8-2 mg film 1 film sublingual DAILY Patient Comments: PLACE ONE FILM UNDER THE TONGUE THREE TIMES A DAY Held mirtazapine 30 mg tablet 30 mg PO HS Hold Instructions: Resume on 04/02/25. Do not take this medication while you are taking the antibiotic linezolid Patient Comments: TAKE ONE TABLET BY MOUTH EVERY DAY Discharge Instructions Instructions: Wound Infection Additional Instructions: As discussed I am highly concerned that there is a significant infection in your finger likely related to your prior infection. This infection may be difficult to treat and not responsive to oral antibiotics, and may need surgery to fully heal. You have requested to leave AGAINST MEDICAL ADVICE, as such I will provide you with antibiotics which I suspect will give you the best chance of healing, however I must reiterate that there is no guarantee this will work. Progressive infection may result in loss of the digit in the hand, the limb, or with other grave disability or . Please be sure to follow-up your primary care provider, your orthopedic surgeon for further management. Please return the emergency department you have worsening symptoms to include pain, rash, fever or persistent nausea and vomiting. HPI General Date/Time Provider Initiated Documentation: 03/19/25 10:47. HPI Narrative: MDM/Narrative: 39-year-old male with finger pain likely due to infection associated recent managements of internal fixation following a DIP joint infection. Differential Diagnosis: - Infection: Swelling, chills, drainage, recent trauma. Plan: Blood work, antibiotics, hernandez removal, XR. ED Course: - Local anesthetic administered. - Hernandez removed. - Blood work obtained. - Antibiotics started. Selected p.o. linezolid and Bactrim based on recent culture sensitivities. Discussed if the patient had been using mirtazapine recently, which he states that he has not been, he was instructed to not use mirtazapine while using linezolid he is aware of severe reactions that may occur that can be life-threatening. Patient states that he must leave AMA as he has an appointment with a psychiatrist that he cannot miss. I explained to the patient that I am concerned he has a infection in his finger which may spread rapidly which could result in loss of hand limb or life or other gross disability that could be permanent. He understands the risk he is takes but request to sign AMA. Final Assessment: Finger pain likely due to infection associated with hernandez. Local anesthetic administered, hernandez removed, blood work obtained, antibiotics started. Disposition: AMA this document was created with assistance from [employer] The patient consented to its use. HPI: The patient is a 39-year-old male presenting with digital pain. Initially, he was prescribed Oxycodone 20 mg, which caused gastrointestinal distress, leading to a switch to a different formulation of oxycodone, which is now ineffective. He reports experiencing rigors and lassitude. The finger has been edematous for 10 weeks post-injury, without signs of erythema or infection. Three days ago, he sustained trauma to the finger, resulting in hemorrhage and edema extending to the hand. The patient has been unemployed for over two months and is seeking assistance with [employer] paperwork. He requests additional pain management due to excessive use of ibuprofen and acetaminophen resulting in nausea. The patient is a smoker and requests nicotine gum. ROS: Negative besides as mentioned above Exam: Vital signs: Reviewed. General Appearance: Uncomfortable and irritable. HEENT: NCAT, EOMI, not icteric. External ears normal. No rhinorrhea. Moist mucous membranes. Neck: Supple, full range of motion, no observable masses, No meningeal sign. Respiratory: No Respiratory distress. No tachypnea. Cardiovascular: RRR, no edema. Gastrointestinal: Soft, nondistended, No rebound tenderness. Back: No midline tenderness to palpation or palpable step-offs of the C/T/L spine. Musculoskeletal: Right third finger swelling to the base of the finger, chronic radial aspect ulcer which is clean dry and intact, there is a surgical pin extending from the tip of the finger, tenderness, pain on palpation. Skin: Finger redness and swelling. Neurological: Normal Gait, Grossly intact. Psychiatric: Appropriate for situation. Labs: [] Radiology: [] Related Data Home Medications ?Medication ?Instructions ?Recorded ?Confirmed sulfamethoxazole 800 1 tab PO Q12H #60 tabs 01/30/25 03/19/25 mg-trimethoprim 160 mg tablet (Bactrim DS) oxycodone-acetaminophen 5 mg-325 1 tab PO TID PRN #7 tabs 02/01/25 03/19/25 mg tablet (Percocet) buprenorphine 8 mg-naloxone 2 mg 1 film sublingual DAILY 03/19/25 03/19/25 sublingual film (Suboxone) clonidine HCl 0.1 mg tablet 0.1 mg PO PRN 03/19/25 03/19/25 gabapentin 100 mg capsule 100 mg PO TID 03/19/25 03/19/25 linezolid 600 mg tablet 600 mg PO Q12H 28 days #56 tabs 03/19/25 mirtazapine 30 mg tablet 30 mg PO HS 03/19/25 03/19/25 Held on 03/19/25. Instructions: Resume on 04/02/25. Do not take this medication while you are taking the antibiotic linezolid oxycodone-acetaminophen 5 mg-325 1 tab PO Q8H PRN #10 tabs 03/19/25 mg tablet (Percocet) sulfamethoxazole 800 1 tab PO Q12H #60 tabs 03/19/25 mg-trimethoprim 160 mg tablet (Bactrim DS) zolpidem 5 mg tablet (Ambien) 5 mg PO QHS PRN #10 tabs 03/19/25 Previous Rx's ?Medication ?Instructions ?Recorded sulfamethoxazole 800 1 tab PO Q12H #60 tabs 01/30/25 mg-trimethoprim 160 mg tablet (Bactrim DS) oxycodone-acetaminophen 5 mg-325 1 tab PO TID PRN #7 tabs 02/01/25 mg tablet (Percocet) linezolid 600 mg tablet 600 mg PO Q12H 28 days #56 tabs 03/19/25 oxycodone-acetaminophen 5 mg-325 1 tab PO Q8H PRN #10 tabs 03/19/25 mg tablet (Percocet) sulfamethoxazole 800 1 tab PO Q12H #60 tabs 03/19/25 mg-trimethoprim 160 mg tablet (Bactrim DS) zolpidem 5 mg tablet (Ambien) 5 mg PO QHS PRN #10 tabs 03/19/25 Allergies Allergy/AdvReac Type Severity Reaction Status Date / Time No Known Allergies Allergy Verified 03/19/25 10:45 General Stated Complaint: Cellulitis FRED: 3 Course Vital Signs Vital signs: Vital Signs Temperature 37.1 C 03/19/25 10:41 Pulse 100 H 03/19/25 10:41 Respiratory Rate 16 03/19/25 10:41 Blood Pressure 133/84 03/19/25 10:41 Pulse Oximetry 97 03/19/25 10:41 Temperature 37.1 C 03/19/25 10:48 Temperature Source Oral 03/19/25 10:48 Pulse 100 H 03/19/25 10:48 Respiratory Rate 18 03/19/25 10:48 Blood Pressure 133/84 03/19/25 10:48 Blood Pressure Position Sitting 03/19/25 10:48 Pulse Oximetry 97 03/19/25 10:48 Oxygen Delivery Method Room Air 03/19/25 10:48 Oxygen Flow Rate 0 03/19/25 10:41 Pain Level 10 03/19/25 10:41 Lab/Test Results Lab/Test Results: Laboratory Tests Range/Units 03/19/25 12:35 WBC (4.4-10.8) 10^3/uL 12.57 H RBC (4.36-5.78) 10^6/uL 4.67 Hgb (13.5-17.5) g/dL 12.8 L Hct (40.0-50.0) % 38.5 L MCV (80-95) fL 82 MCH (27.0-33.0) pg 27.4 MCHC (32.0-36.0) % 33.2 RDW (11.8-14.1) % 14.0 Plt Count (130-400) 10^3/uL 334 MPV (8.0-11.0) fL 10.3 Immature Gran % % 0.6 Neutrophils % % 70.1 Lymphocytes % % 21.0 Monocytes % % 7.4 Eosinophils % % 0.6 Basophils % % 0.3 Nucleated RBC % (0.0-0.3) % 0.0 Absolute Neutrophils (1.2-6.7) 10^3/uL 8.81 H Absolute Lymphocytes (1.2-3.4) 10^3/uL 2.64 Absolute Monocytes (0.1-0.8) 10^3/uL 0.93 H Absolute Eosinophils (0.0-0.7) 10^3/uL 0.08 Absolute Basophils (0.0-0.2) 10^3/uL 0.04 ESR (0-15) mm/hr 31 H PFSH All Active Problems (Updated 03/19/25 @ 12:58 by Timmy Gonzalez MD) Tobacco use disorder (Chronic) 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) Asthma (Chronic) Severe substance use disorder (Chronic) Mallet deformity of right middle finger (Acute) Septic arthritis of interphalangeal joint of finger of right hand (Acute) Infected finger (Acute) Opiate withdrawal (Acute) Social History Smoking/Tobacco Use Status: Current every day Tobacco Type: cigarettes and e-cigarettes Smoking risk assessment performed?: Yes Alcohol Intake: never Drug use: Daily Substance use type: marijuana, crack/cocaine, heroin, opiates and IV drugs Details: state he has not used any drugs over a month ago Housing: apartment Additional Social history: unable to obtain
[2025-03-19 12:58] LABS: ALT 127 U/L (16-63); AST 73 U/L (15-37); Albumin 3.7 g/dL (3.4-5.0); Alkaline Phosphatase 62 U/L (46-116); Anion Gap 7.6 mmol/L (3-11); BUN 13 mg/dL (7-18); Bilirubin, Total 0.6 mg/dL (0.2-1.0); C-Reactive Protein 1.78 mg/dL (<or=0.5); CO2 29.4 mmol/L (21.0-32.0); Calcium 9.1 mg/dL (8.5-10.1); Chloride 101 mmol/L (98-107); Estimated GFR 120.95 (mL/min/1.73m2); Glucose 119 mg/dL (74-106); Potassium 3.2 mmol/L (3.5-5.1); Sodium 138 mmol/L (136-145); Total Protein 7.6 g/dL (6.4-8.2)
[2025-03-19] MEDS: Linezolid 600 MG TAB PO (13:18)
[2025-03-19] MEDS: Sulfameth/Trimeth DS TAB 1 TAB PO (13:19)
[2025-03-19 13:27] VITALS: BP 127/90; PULSE 87; RESP 12; O2SAT 100
--- NOTE | 2025-03-19 14:19 | NUR.NOTE ---
Patient called stating that the prescriptions still did not go through to the pharmacy. I had the patient have [facility] call us. They called Dr Gonzalez is not covered by Medicaid at this time. Anyi Beck will resend the prescriptions for the patient to car pick up driver. Lima Mott RN assisted in this process for the patient. Nursing Note:
--- NOTE | 2025-03-19 16:03 | NUR.NOTE ---
Training and Employment Medical Report for General and Emergency Assistance and [id number] faxed to [phone]. Form sent to medical records to be scanned to chart. Nursing Note:
== END 2025-03-19 13:29 | disposition left against medical advice (07) ==
PROVIDERS: Emergency Provider General Practice
DX: T84.69XA Infection and inflammatory reaction due to internal fixation device of other site, initial encounter (principal)
CPT/HCPCS: 99283; 99284; 36415; 80053; 85652; 85025; 86140; J2004

== ENCOUNTER 2025-03-20 14:52 | Inpatient (IN) | payer MEDICAID, SELFPAY ==
--- NOTE | 2025-03-20 | DI.CT_ITS ---
Exam(s) CT UPPER EXTREMITY RT W EXAM: CT UPPER EXTREMITY RT W CLINICAL HISTORY: CT right hand/finger, with and without IV contrast. TECHNIQUE: Imaging Protocol: Axial computed tomography images with coronal and sagittal reformatted images were created and reviewed. CONTRAST MATERIAL: Intravenous: Omnipaque 350. Contrast Volume: 100 ML COMPARISON: CR XR HAND RT LIMITED from 01/29/2025 CR XR FINGER RT MIDDLE from 01/29/2025 CR XR HAND RT COMPLETE from 03/20/2025 FINDINGS: Bones: The previously seen percutaneous pin traversing the DIP joint of the middle finger has been removed. There is diffuse osteopenia of the distal phalanx and mild osteopenia involving the distal aspect of the middle phalanx of the middle finger. There are erosions seen at the DIP joint of the middle finger involving the base of the distal phalanx in the head of the middle phalanx. There is periosteal reaction adjacent to the lateral aspect of the head of the middle phalanx. There does appear to be a fracture involving the proximal metaphysis of the distal phalanx. There is narrowing of the DIP joint space of the middle finger. No lytic or sclerotic lesions are identified. Soft Tissues: There is soft tissue swelling of the 3rd finger particularly distally. No focal fluid collection is seen to suggest an abscess. There is thickening of the skin suggesting cellulitis. Enhancement: No enhancing mass is appreciated. IMPRESSION: 1. Findings of soft tissue swelling involving the 3rd finger consistent with cellulitis. No focal fluid collection is seen to suggest an abscess or soft tissue gas. 2. Interval removal of the percutaneous pin from the 3rd finger. 3. Diffuse osteopenia, fragmentation and destructive changes involving the head of the middle phalanx and the distal phalanx of the middle finger. The findings are suspicious for osteomyelitis. Involvement of the DIP joint raises a question of septic arthritis. 4. The preliminary [facility] report was reviewed. RADIATION DOSE DELIVERED: 88.38mGy.cm Total DLP 88.38mGy.cm Total DLP DATA REPOSITORY: All CT scans at this facility are submitted to the National Radiology Data Registry (NRDR) Dose Index Registry (DIR) with the [employer] ([employer]). RADIATION OPTIMIZATION: All CT scans at this facility use at least one of these dose optimization techniques: automated exposure control; mA and/or kV adjustment per patient size (includes targeted exams where dose is matched to clinical indication); or iterative reconstruction.
[2025-03-20 15:05] VITALS: BP 120/76; PULSE 105; RESP 20; TEMP 39.2; O2SAT 98
--- NOTE | 2025-03-20 15:30 | DI.RAD_ITS ---
Exam(s) XR HAND RT COMPLETE EXAM: XR HAND RT COMPLETE CLINICAL HISTORY: eval for osteo, wound infection. TECHNIQUE: 2D digital imaging was performed. COMPARISON: CR XR FINGER RT MIDDLE from 01/29/2025 FINDINGS: 3 views There is severe osteopenia of the distal phalanx of the 3rd-middle finger and milder osteopenia also evident in the head of the middle phalanx. These findings were not evident on CT scan of 01/29/2025. There is no gas in soft tissues. No radiopaque foreign body. IMPRESSION: Significant bone loss in the distal phalanx 3rd finger. Correlation with any clinical signs of osteomyelitis recommended No radiopaque foreign body evident. DATA REPOSITORY: RADIATION DOSE DELIVERED:
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
[2025-03-20 16:30] LABS: Abs Immature Grans 0.07 10^3/uL (0.0-0.06); HCT 32.8 % (40.0-50.0); HGB 10.7 g/dL (13.5-17.5); Immature Grans % 0.6 %; MCH 27.1 pg (27.0-33.0); MCHC 32.6 % (32.0-36.0); MCV 83 fL (80-95); MPV 10.5 fL (8.0-11.0); Platelet Count 280 10^3/uL (130-400); RBC 3.95 10^6/uL (4.36-5.78); RDW 14.1 % (11.8-14.1); RDW-SD 42.3 fL; WBC 11.44 10^3/uL (4.4-10.8)
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
[2025-03-20 16:33] LABS: ESR 29 mm/hr (0-15)
[2025-03-20] MEDS: Acetaminophen 500 MG TAB 1000 MG PO (16:53)
[2025-03-20] MEDS: cefTRIAXone 2 GM/50 ML BAG IVPB (16:53)
[2025-03-20] MEDS: VANCOMYCIN/WATER (PEG) 1.5 GM/300 ML BAG IVPB (16:54)
[2025-03-20 16:57] LABS: ALT 106 U/L (16-63); AST 53 U/L (15-37); Albumin 3.6 g/dL (3.4-5.0); Alkaline Phosphatase 66 U/L (46-116); Anion Gap 7.4 mmol/L (3-11); BUN 10 mg/dL (7-18); Bilirubin, Total 0.4 mg/dL (0.2-1.0); C-Reactive Protein 2.19 mg/dL (<or=0.5); CO2 29.6 mmol/L (21.0-32.0); Calcium 9.4 mg/dL (8.5-10.1); Chloride 100 mmol/L (98-107); Estimated GFR 112.11 (mL/min/1.73m2); Glucose 88 mg/dL (74-106); Potassium 3.4 mmol/L (3.5-5.1); Sodium 137 mmol/L (136-145); Total Protein 7.4 g/dL (6.4-8.2)
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
[2025-03-20] MEDS: Nicotine 4 MG GUM CH ×2 (17:08→20:17)
[2025-03-20] MEDS: HYDROmorphone 2 MG/ML SYR 1 MG IVP (17:08)
[2025-03-20 17:27] VITALS: BP 120/76; PULSE 105; RESP 20; TEMP 39.2; O2SAT 98
[2025-03-20 17:50] VITALS: BP 142/76; PULSE 86; TEMP 37.2
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
[2025-03-20] MEDS: cloNIDine 0.1 MG TAB 0.2 MG PO (18:51)
[2025-03-20 19:05] VITALS: O2SAT 98
[2025-03-20] MEDS: HYDROmorphone 2 MG/ML SYR IVP (20:17)
[2025-03-20] MEDS: Gabapentin 100 MG CAP PO (20:18)
[2025-03-20] MEDS: Mirtazapine 15 MG TAB 30 MG PO (20:18)
[2025-03-20] MEDS: Acetaminophen 325 MG TAB 650 MG PO (20:18)
[2025-03-20] MEDS: Normal Saline Flush 10 ML SYR (20:19)
[2025-03-20] MEDS: Omnipaque 350 MG/ML 100 ML BTL IJ (20:32)
[2025-03-20] MEDS: Normal Saline - Diluent 50 ML VIAL IJ (20:32)
[2025-03-20 21:00] VITALS: O2SAT 98
--- NOTE | 2025-03-20 21:08 | DI.VRAD_ITS ---
PROCEDURE INFORMATION: Exam: CT Right Upper Extremity With Contrast Exam date and time: 03/20/2025 8:26 PM Age: 39 years old Clinical indication: Other: Evaluate for osteomyelitis, soft tissue gas, bony TECHNIQUE: Imaging protocol: Computed tomography of the right upper extremity with contrast. Radiation optimization: All CT scans at this facility use at least one of these dose optimization techniques: automated exposure control; mA and/or kV adjustment per patient size (includes targeted exams where dose is matched to clinical indication); or iterative reconstruction. Contrast material: [id number]; Contrast volume: 100 ml; Contrast route: INTRAVENOUS (IV); COMPARISON: CR XR HAND RT COMPLETE 03/20/2025 4:47 PM FINDINGS: Bones/joints: The distal 3rd phalanx demonstrates marked bony fragmentation and cortical disruption suspicious for advanced osteomyelitis. This extends to the 3rd D IP joint. The superior aspect of the 3rd middle phalanx also demonstrates cortical thinning and disruption suspicious for osteomyelitis. Soft tissues: Marked soft tissue swelling is present at the distal aspect of the right 3rd digit. No discrete rim enhancing fluid collections are visualized to suggest subcutaneous abscess. No soft tissue emphysema. No other suspicious bony or soft tissue abnormalities. IMPRESSION: 1. 3rd digit cellulitis and osteomyelitis which involves the distal phalanx and the distal aspect of the middle phalanx. The 3rd DIP joint is involved raising the suspicion for additional septic arthritis. 2. Marked overlying soft tissue swelling without discrete fluid collection to suggest abscess. No soft tissue gas to suggest gas-forming infection. Dictated and Authenticated by: Joseline Green MD. Orderin Jono Nj MD
[2025-03-20] MEDS: oxyCODONE-CR 20 MG TABCR PO (22:07)
[2025-03-20 23:35] VITALS: BP 107/66; PULSE 64; RESP 15; TEMP 36.4; O2SAT 99
[2025-03-21] MEDS: Melatonin 3 MG TAB 9 MG PO ×2 (02:04→21:20)
[2025-03-21] MEDS: Acetaminophen 325 MG TAB 650 MG PO ×4 (02:04→22:27)
[2025-03-21] MEDS: cloNIDine 0.1 MG TAB 0.2 MG PO ×3 (02:04→18:01)
[2025-03-21] MEDS: HYDROmorphone 2 MG/ML SYR IVP ×4 (02:04→14:06)
[2025-03-21] MEDS: Normal Saline Flush 10 ML SYR IVP ×9 (02:05→21:21)
[2025-03-21 02:12] LABS: Vancomycin, Random 9.3 ug/mL
[2025-03-21] MEDS: Vancomycin 1,000 MG VIAL 1000 MG (03:35)
[2025-03-21] MEDS: VANCOMYCIN/WATER (PEG) 1 GM/200 ML BAG IV ×2 (03:36→16:27)
[2025-03-21] MEDS: Water,Injection,Sterile 10 ML VIAL (03:37)
[2025-03-21 05:19] VITALS: BP 119/80; PULSE 62; RESP 16; TEMP 36.5; O2SAT 100
[2025-03-21 06:46] LABS: Abs Immature Grans 0.06 10^3/uL (0.0-0.06); HCT 34.5 % (40.0-50.0); HGB 11.1 g/dL (13.5-17.5); Immature Grans % 0.9 %; MCH 27.2 pg (27.0-33.0); MCHC 32.2 % (32.0-36.0); MCV 85 fL (80-95); MPV 10.0 fL (8.0-11.0); Platelet Count 232 10^3/uL (130-400); RBC 4.08 10^6/uL (4.36-5.78); RDW 14.5 % (11.8-14.1); RDW-SD 44.9 fL; WBC 6.58 10^3/uL (4.4-10.8)
[2025-03-21 07:05] LABS: Anion Gap 5.1 mmol/L (3-11); BUN 10 mg/dL (7-18); C-Reactive Protein 2.83 mg/dL (<or=0.5); CO2 30.9 mmol/L (21.0-32.0); Calcium 9.1 mg/dL (8.5-10.1); Chloride 107 mmol/L (98-107); Estimated GFR 112.11 (mL/min/1.73m2); Glucose 138 mg/dL (74-106); Magnesium 1.9 mg/dL (1.8-2.4); Potassium 3.7 mmol/L (3.5-5.1); Sodium 143 mmol/L (136-145)
--- NOTE | 2025-03-21 07:47 | PGE_ITS ---
Date of Service Date of service: 03/21/25 Time of Service: 07:48 Assessment and Plan Assessment and plan (1) Osteomyelitis of finger of right hand: Status: Acute Assessment and plan: 39-year-old male with right hand middle finger osteomyelitis. Patient admitted yesterday and has been receiving IV antibiotics. Being treated with vancomycin, ceftriaxone, and meropenem. He denies any fever but continues to report systemic symptoms such as fatigue, body aches, and nausea. Admits to unchanged right middle finger pain when compared to yesterday. He tells me that the discomfort that was in the rest of his hand and forearm has improved some. States that his pain is only controlled for about 2 hours after he is given medication and then his pain returns to baseline. No new concerns or complaints at this time. Please refer to the consultation yesterday by Dr. Crespo for more in-depth HPI. Laying in hospital stretcher. No acute distress. Awake, alert x 3, nontoxic. Nondiaphoretic. Right hand exam: Limited and very challenging given significant pain. Diffuse swelling about the middle finger worse over the PIP joint and distally. Erythema beginning just past the PIP joint and spreading distally to the tip of the finger. About 3.5 cm eschar seen over the radial aspect of the PIP joint. No purulent drainage appreciated. Significant discomfort to any palpation, even light touch. Holds his finger in full extension. Unable to actively flex, cannot tolerate any passive flexion. Demonstrates limited active range of motion in the remaining digits. Sensation intact throughout. Normal radial pulse and capillary refill. Right hand CT from 03/20/2025, both images report reviewed, reveals findings consistent with middle finger cellulitis and osteomyelitis. Involvement of the DIP joint raises suspicion of septic arthritis. White blood cell count 6.58 down from 11.44, ESR 29, lactate 1.7, CRP 2.83 up from 2.19 Continue medical management and IV antibiotics. Plan to obtain MRI of the hand to further evaluate. Based upon MRI results, possible n.p.o. after midnight for surgical debridement tomorrow. Continue strict elevation. Objective Last Vital Signs Temp 36.5 C 03/21/25 05:19 Pulse 62 03/21/25 05:19 Resp 16 03/21/25 05:19 BP 119/80 03/21/25 05:19 Pulse Ox 100 03/21/25 05:19 Laboratory Results - last 24 hr 03/20/25 03/21/25 03/21/25 16:15 01:51 06:35 WBC 11.44 H 6.58 RBC 3.95 L 4.08 L Hgb 10.7 L D 11.1 L Hct 32.8 L 34.5 L MCV 83 85 MCH 27.1 27.2 MCHC 32.6 32.2 RDW 14.1 14.5 H Plt Count 280 232 MPV 10.5 10.0 Immature Gran % 0.6 0.9 Neutrophils % 78.4 47.3 Lymphocytes % 10.8 35.7 Monocytes % 9.5 13.7 Eosinophils % 0.5 2.1 Basophils % 0.2 0.3 Nucleated RBC % 0.0 0.0 Absolute Neutrophils 8.97 H 3.11 Absolute Lymphocytes 1.24 2.35 Absolute Monocytes 1.09 H 0.90 H Absolute Eosinophils 0.06 0.14 Absolute Basophils 0.02 0.02 ESR 29 H VBG Lactate 1.7 Sodium 137 143 Potassium 3.4 L 3.7 Chloride 100 107 Carbon Dioxide 29.6 30.9 Anion Gap 7.4 5.1 BUN 10 10 Creatinine 0.9 0.9 Est GFR (CKD-EPI 2020) 112.11 112.11 Glucose 88 138 H Calcium 9.4 9.1 Magnesium 1.9 Total Bilirubin 0.4 AST 53 H ALT 106 H Alkaline Phosphatase 66 C-Reactive Protein 2.19 H 2.83 H Total Protein 7.4 Albumin 3.6 Random Vancomycin 9.3 Time Spent with Patient Time Spent with Patient: <25 minutes Time was spent: preparing to see the patient(eg.review tests), referring, communicating with other health geriatric care manager, indepentently interpreting results and counseling the patient
[2025-03-21] MEDS: Nicotine 4 MG GUM CH (07:53)
[2025-03-21] MEDS: Gabapentin 100 MG CAP PO ×3 (07:53→21:20)
[2025-03-21] MEDS: oxyCODONE-CR 20 MG TABCR PO (07:53)
--- NOTE | 2025-03-21 08:00 | DI.MRI_ITS ---
Exam(s) MR UPPER EXTREMITY RT WO/W EXAM: MR UPPER EXTREMITY RT WO/W CLINICAL HISTORY: Infection / ? osteo TECHNIQUE: Multiplanar multisequence MRI was performed. COMPARISON: CR XR HAND RT LIMITED from 01/29/2025 CR XR FINGER RT MIDDLE from 01/29/[address] UPPER EXTREMITY RT W from 03/20/2025 FINDINGS: MARROW:The previously present longtitudinally orientated pin in the distal and middle phalanges of right middle finger has been removed. There is now significant signal abnormality in the soft tissues of the 3rd finger as well as concerning marrow signal exhibiting confluent hypointense T1 signal in the distal and middle phalanges as well as intraosseous enhancement in these phalanges with the abnormal signal involving the entirety of the middle and distal phalanges as well as the distal interphalangeal joint. The cortex of the most proximal aspect of the middle phalanx appears intact as does the cortex of the head of the proximal phalanx. There is no abnormal signal nor enhancement in the proximal phalanx although there does appear to be small joint effusion in the proximal interphalangeal joint. There is sparing of the proximal phalanx. SOFT TISSUES: Diffuse subcutaneous edema. No obvious gas in the soft tissues. IMPRESSION: 1. Findings are consistent with diffuse osteomyelitis of the middle and distal phalanges of the 3rd finger as well as septic involvement of the distal interphalangeal joint . 2. Although there is no abnormal intraosseous signal in the head-distal aspect of the proximal phalanx nor obvious disruption of cortices of the base-proximal aspect of the middle phalanx, there is a small amount of fluid in the proximal interphalangeal joint. DATA REPOSITORY:
[2025-03-21 08:59] VITALS: BP 122/68; PULSE 72; RESP 18; TEMP 36.3; O2SAT 99
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
[2025-03-21] MEDS: LORazepam 20 MG/10 ML VIAL IVP ×3 (10:15→22:28)
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
[2025-03-21] MEDS: oxyCODONE-CR 10 MG TABCR PO (14:06)
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
[2025-03-21] MEDS: Gadoterate meglumine 20 ML VIAL IVP (15:55)
[2025-03-21 16:55] LABS: Vancomycin, Random 6.8 ug/mL
[2025-03-21] MEDS: HYDROmorphone 2 MG/ML SYR 4 MG IVP ×2 (18:01→22:28)
[2025-03-21] MEDS: Enoxaparin 40 MG/0.4 ML SYR SC (18:01)
[2025-03-21] MEDS: oxyCODONE-CR 20 MG TABCR 30 MG PO (21:18)
[2025-03-21] MEDS: Docusate Sodium 100 MG CAP PO (21:20)
[2025-03-21] MEDS: Mirtazapine 15 MG TAB 30 MG PO (21:20)
[2025-03-21 21:34] VITALS: BP 112/63; PULSE 77; RESP 20; TEMP 36.4; O2SAT 97
[2025-03-22] MEDS: Acetaminophen 325 MG TAB 650 MG PO ×2 (03:39→10:55)
[2025-03-22] MEDS: HYDROmorphone 2 MG/ML SYR 4 MG IVP ×4 (03:40→16:14)
[2025-03-22] MEDS: cloNIDine 0.1 MG TAB 0.2 MG PO ×2 (03:40→10:55)
[2025-03-22 03:46] VITALS: BP 117/71; PULSE 67; RESP 16; TEMP 36.1; O2SAT 98
[2025-03-22] MEDS: VANCOMYCIN/WATER (PEG) 1 GM/200 ML BAG IV (04:25)
[2025-03-22 07:31] VITALS: BP 112/66; PULSE 61; RESP 17; TEMP 36.8; O2SAT 97
[2025-03-22] MEDS: oxyCODONE-CR 20 MG TABCR 30 MG PO (07:50)
[2025-03-22] MEDS: Gabapentin 100 MG CAP PO (07:50)
[2025-03-22] MEDS: Docusate Sodium 100 MG CAP PO (07:51)
[2025-03-22] MEDS: Enoxaparin 40 MG/0.4 ML SYR SC (08:22)
--- NOTE | 2025-03-22 08:56 | CMPROGNOTE_ITS ---
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 During out interaction patient was pleasant and easily engaged in conversation. 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 In addition he expresses financial concerns due to being unemployed. He brought a General Assistance/[employer] form to the hospital and is appreciative that it was able to be completed by the hospitalist and faxed to Economic services today. Timur reports difficulty with comprehension and finds it challenging to completed applications and finding appropriate community supports. He expressed that he would be very appreciative of the opportunity to meet with a CHW from [facility] for support navigating other resources which may be available to him.CM will continue to follow. Patient may benefit from [facility] RN services for wound care and supplies. CM scheduled a Hospital follow up with PCP office on 04/01/25 at 3:[address] Joy West. Discharge Potential Discharge Needs: PCP F/U Appt Anticipated Barriers to Discharge: None Identified Patient/Family Education Needs: Review discharge instructions, discuss Ask Me Three Transportation: Private vehicle Plan: Anticipate, Timur will be discharged home with New [facility] RN for wound care and supplies when medically cleared. He will follow up with his community providers and plan of care and transport via [facility]. Pt also plans to follow up with [facility] for support with his [facility] needs. CM will follow. Social Determinants of Health Screening Social Determinants of health last assessed in clinic: 03/22/25 Will the Patient Participate in the Screening?: Yes Do you worry about having a steady place to live?: no Problems where you live: no known problems In the past 12 months, have you had to go without electric, gas, oil or water in your home?: no 1. Within the past 12 months, we worried whether our food would run out before we got money to buy more.: Never true 2. Within the past 12 months, the food we bought just didn't last and we didn't have money to get more.: Never true Has lack of transportation kept you from medical appointments or from doing things needed for daily living?: yes Has anyone in your life made you feel unsafe or unsupported?: no How hard is it for you to pay for the very basics like food, housing, medical care, and heating? Would you say it is:: Not hard at all Do you want help finding or keeping work or a job?: Yes, help keeping work If for any reason you need help with day-to-day activities such as bathing, preparing meals, shopping, managing finances, etc., do you get the help you need?: I don?t need any help How often do you feel lonely or isolated from those around you?: Never Do you speak a language other than [place] Citizen at home?: No Does the patient want assistance with any of the above?: No Health Related Social Needs Health related social needs: transportation insecurity (Z59.82) and problems finding work (Z56.9) Health related social needs details: pt uses [facility] for everywhere
--- NOTE | 2025-03-22 10:55 | W.PM.PROGNOT ---
Date of Service Date of service: 03/22/25 Time of Service: 10:55 Assessment and Plan Assessment and plan (1) Full thickness burn of right middle finger: Status: Acute Assessment and plan: Right hand wound infection, concern for progression to sepsis, osteomyelitis; being treated with meropenem and vancomycin Aerobic blood culture collected 03/20/25 positive for gram positive cocci follow inflammatory markers ortho consulted to OR today for surgical management (2) Severe substance use disorder: Status: Chronic Assessment and plan: Consider supportive counseling and linkage to addiction services. Theo consultation (3) Tobacco use disorder: Status: Chronic Assessment and plan: PRN NRT - pref gum (4) On deep vein thrombosis (DVT) prophylaxis: Status: Acute Assessment and plan: will resume LMWH postoperatively TEDs Discussed with Dr. Ureña Subjective Subjective Patient reports: no new complaints Interval history since last seen: patient in OR on rounds Objective Last Vital Signs Temp 36.8 C 03/22/25 07:31 Pulse 61 03/22/25 07:31 Resp 17 03/22/25 07:31 BP 112/66 03/22/25 07:31 Pulse Ox 97 03/22/25 07:31 Laboratory Results - last 24 hr 03/21/25 16:30 Random Vancomycin 6.8
[2025-03-22] MEDS: LORazepam 20 MG/10 ML VIAL IVP (11:00)
[2025-03-22 11:13] LABS: HCT 37.0 % (40.0-50.0); HGB 11.9 g/dL (13.5-17.5); MCH 26.9 pg (27.0-33.0); MCHC 32.2 % (32.0-36.0); MCV 84 fL (80-95); MPV 10.1 fL (8.0-11.0); Platelet Count 295 10^3/uL (130-400); RBC 4.43 10^6/uL (4.36-5.78); RDW 14.5 % (11.8-14.1); RDW-SD 44.6 fL; WBC 6.78 10^3/uL (4.4-10.8)
[2025-03-22 11:14] LABS: ESR 24 mm/hr (0-15)
[2025-03-22 11:29] LABS: C-Reactive Protein 1.42 mg/dL (<or=0.5)
[2025-03-22] MEDS: DALBAVANCIN 1,500 MG in DEXTROSE 5%-WATER 325 ML 650 MG IVPB (12:54)
--- NOTE | 2025-03-22 13:05 | W.ANESPRE ---
General Info Date of Service Date Performed: 03/22/25 Height: 5 ft 11 in Weight: 65 kg Body Mass Index (BMI): 20.0 Surgical Procedure: Operation Date: 03/22/25 13:25 Proposed Procedure Side Surgeon p Right Middle Finger Incision and Drainage Right Addy Aguilar MD Meds Allergies and Home Medications Allergies Allergy/AdvReac Type Severity Reaction Status Date / Time No Known Allergies Allergy Verified 03/20/25 15:12 Home Medication ?Medication ?Instructions ?Recorded buprenorphine 8 mg-naloxone 2 mg 1 film sublingual DAILY 03/19/25 sublingual film (Suboxone) clonidine HCl 0.1 mg tablet 0.1 mg PO PRN 03/19/25 gabapentin 100 mg capsule 100 mg PO TID 03/19/25 linezolid 600 mg tablet 600 mg PO BID #56 tabs 03/19/25 melatonin 3 mg capsule 3 mg PO HS PRN #6 caps 03/19/25 mirtazapine 30 mg tablet 30 mg PO HS 03/19/25 oxycodone-acetaminophen 5 mg-325 1 tab PO Q8H PRN #10 tabs 03/19/25 mg tablet (Percocet) Current Visit Medications: Current Medications Generic Name Dose Route Start Last Admin Trade Name Freq PRN Reason Stop Dose Admin Acetaminophen 650 mg 03/20/25 17:37 03/22/25 10:55 Acetaminophen 325 Mg Tab PO 650 mg Q4H PRN PRN Administration Clonidine 0.2 mg 03/20/25 19:00 03/22/25 10:55 Clonidine 0.1 Mg Tab PO 0.2 mg Q8H LATA Administration Docusate Sodium 100 mg 03/21/25 20:00 03/22/25 07:51 Docusate Sodium 100 Mg Cap PO 100 mg TID LATA Administration Enoxaparin Sodium 40 mg 03/21/25 18:00 03/22/25 08:22 Enoxaparin 40 Mg/0.4 Ml Syr SC 03/22/25 17:59 40 mg DAILY LATA Administration Gabapentin 100 mg 03/20/25 20:00 03/22/25 07:50 Gabapentin 100 Mg Cap PO 100 mg TID LATA Administration Gadoterate Meglumine 20 ml 03/21/25 16:00 03/21/25 15:55 Gadoterate Meglumine 20 Ml Vial IVP 09/27/25 23:59 13 ml DIRECTED LATA Administration Hydromorphone HCl 4 mg 03/21/25 17:03 03/22/25 12:05 Hydromorphone 2 Mg/Ml Syr IVP 4 mg Q4H PRN PRN Administration Lorazepam 1 mg 03/20/25 18:14 03/21/25 22:28 Lorazepam 20 Mg/10 Ml Vial IVP 1 mg Q3H PRN PRN Administration Melatonin 9 mg 03/21/25 20:00 03/21/25 21:20 Melatonin 3 Mg Tab PO 9 mg HS LATA Administration Mirtazapine 30 mg 03/20/25 20:00 03/21/25 21:20 Mirtazapine 15 Mg Tab PO 30 mg HS LATA Administration Nicotine 4 mg 03/20/25 16:33 03/21/25 07:53 Nicotine 4 Mg Gum CH 4 mg Q1H PRN PRN Administration Nicotine 2 mg 03/21/25 14:02 Nicotine 2 Mg Gum CH Q2H PRN PRN Ondansetron HCl 4 mg 03/20/25 18:34 Ondansetron 4 Mg/2 Ml Vial IVP Q4H PRN PRN Oxycodone HCl 30 mg 03/21/25 20:00 03/22/25 07:50 Oxycodone-Cr 20 Mg Tabcr PO 30 mg BID LATA Administration Polyethylene Glycol 17 gm 03/20/25 17:37 Polyethylene Glycol 3350 17 Gm Packet PO DAILY PRN PRN Constipation Sodium Chloride 0 ml 03/20/25 20:31 03/21/25 21:21 Normal Saline Flush 10 Ml Syr IVP 10 ml PRN PRN Administration [facility] Active Problems Active Problems: Problem Status Onset Code On deep vein thrombosis (DVT) prophylaxis Acute Z79.899 Full thickness burn of right middle finger Acute T23.321A Osteomyelitis of finger of right hand Acute M86.9 Wound infection Acute T14.8XXA, L08.9 Tobacco use disorder Chronic F17.200 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 Asthma Chronic J45.909 Severe substance use disorder Chronic F19.20 Septic arthritis of interphalangeal joint of finger of right hand Acute M00.9 Opiate withdrawal Acute F11.93 Tobacco Smoking/Tobacco Use Status: Current every day Tobacco Type: e-cigarettes Alcohol Alcohol Intake: never Substance Use Substance use: Daily Substance use type: marijuana, crack/cocaine, heroin, opiates and IV drugs Details: state he has not used any drugs over a month ago Vital Signs and Lab Results Vital Signs Most Recent Vital Signs in EMR: Most Recent Vital Signs Temp Pulse Resp BP Pulse Ox 36.8 C 61 17 112/66 97 03/22/25 07:31 03/22/25 07:31 03/22/25 07:31 03/22/25 07:31 03/22/25 07:31 Lab Results 03/22/25 11:05 03/21/25 06:35 Complete Blood Count: WBC, (4.4-10.8) 6.78 10^3/uL Today, 11:05 RBC, (4.36-5.78) 4.43 10^6/uL Today, 11:05 Hgb, (13.5-17.5) 11.9 g/dL L Today, 11:05 Hct, (40.0-50.0) 37.0 % L Today, 11:05 Plt Count, (130-400) 295 10^3/uL Today, 11:05 VBG Lactate, (<or=2.0) 1.7 mmol/L 03/20/25, 16:15 Complete Metabolic Panel: Sodium, (136-145) 143 mmol/L 03/21/25, 06:35 Potassium, (3.5-5.1) 3.7 mmol/L 03/21/25, 06:35 Chloride, (98-107) 107 mmol/L 03/21/25, 06:35 Carbon Dioxide, (21.0-32.0) 30.9 mmol/L 03/21/25, 06:35 BUN, (7-18) 10 mg/dL 03/21/25, 06:35 Creatinine, (0.70-1.30) 0.9 mg/dL 03/21/25, 06:35 Est GFR (CKD-EPI 2020), (mL/min/1.73m2) 112.11 03/21/25, 06:35 Magnesium, (1.8-2.4) 1.9 mg/dL 03/21/25, 06:35 Calcium, (8.5-10.1) 9.1 mg/dL 03/21/25, 06:35 Albumin, (3.4-5.0) 3.6 g/dL 03/20/25, 16:15 Glucose, (74-106) 138 mg/dL H 03/21/25, 06:35 C-Reactive Protein, (<or=0.5) 1.42 mg/dL H Today, 11:05 Liver Function Panel: ALT, (16-63) 106 U/L H 03/20/25, 16:15 AST, (15-37) 53 U/L H 03/20/25, 16:15 Imaging and Studies Imaging and Studies Study information below may be from another EMR and interpreted by another provider. Please see original notes in EMR for more complete details. EKG Summary: EKG PATIENT NAME: Timur Baldwin UNIT #: [id number] ORDERING PROVIDER: Eren Cross M.D. PRIMARY CARE PROVIDER: UNKNOWN,UNKNOWN DATE/TIME OF SERVICE: 12/16/24 1406 : 1985 PERFORMING LOCATION: ER APPROVED REPORT Exam: Resting ECG Reason for Exam: irregular heart rate Patient Location: E HR:71 bpm ECG Measurements Heart Rate 71 AXIS MS 151 P 76 QRSd 81 QRS 72 QT 445 T78 QTc 486 Conclusion Sinus rhythm 71 normal axis no stemi <Electronically signed by Eren Cross M.D. in [place]> E-Sign Date: 12/16/24 E-Sign Time: 1432 ADDENDUM APPROVED REPORT Exam: Resting ECG Reason for Exam: irregular heart rate Patient Location: E HR:71 bpm ECG Measurements Heart Rate 71 AXIS MS 151 P 76 QRSd 81 QRS 72 QT 445 T78 QTc 486 Conclusion Sinus rhythm 71 normal axis no stemi I have reviewed and I agree with the emergency room physician's ECG interpretation. Electronically signed by: <Electronically signed by Veronica Whitley M.D. in [place]> 12/18/24 0756 Cosigned by: Anesthesia Assessment and Plan Anesthesia History Personal History: No History of Anesthesia Complications Family History: No Family History of Anesthesia Complications Exercise Tolerance Exercise Tolerance: Metabolic Equivalents>4 Pertinent Negatives Pertinent Negatives: No Symptoms of GERD Cardiac & Pulmonary Exam Cardiac Exam: Normal S1/S2 Heart Sounds Pulmonary Exam: Clear Bilateral Breath Sounds Implantable Cardiac Device Does patient have a Pacemaker or an ICD?: No Airway Exam Known Difficult Airway: No Mallampati Class: 2 Mouth Opening: Normal (> 3cm) Thyromental Distance: Greater than 3 cm Neck Range of Motion: Limited ROM Neck Circumference: Normal Teeth Condition: Edentulous ASA Classification ASA Score: ASA 2 Emergency Case?: No NPO Status NPO Status: NPO Clears >2 hours, Solids >8 hours Anesthesia Plan Resuscitation Status: Full Code Anesthesia Technique: General Anesthesia Airway Planned: Natural Airway Monitors Used: Standard Monitors Preoperative Comments:: Admits to poly-substance drug abuse. Vapes THC & Nicotine. History of non-compliance with medical treatment. Gulshan Denise CRNA
--- NOTE | 2025-03-22 13:22 | CHAPLAIN ---
Timur said he is having a procedure on his finger at 1:30 p.m. and hopes to talk with the hospitalist before that. He is worried about pain control after the procedure as he needs to go right away and pick his 15 year old daughter up. Timur said he was recently given full custody of his daughter again from [facility], and she is not allowed to be at home without him as she needs supervision. She has some disabilities, he explained and started at [facility] today. Timur said being in the hospital, in one room is difficult for him as he has anxiety and it gives him too much time to think, and no time to get outside and walk where he can deal with things better. Because of missing work during his last hospitalization, and paperwork that wasn't completed, he missed pay from his job at [employer] and having difficulties paying some bills and is worried that his electric will get turned off. He said [employer] and [employer] do not have any funding to help him. He is working on getting disability. He left last time here was here AMA, and said that wasn't a good idea. I provided supportive listening. I will try to visit again later today.
[2025-03-22] MEDS: Lactated Ringers 1,000 ML 100 ML IV (13:40)
--- NOTE | 2025-03-22 13:40 | PGE_ITS ---
Date of Service Date of service: 03/22/25 Time of Service: 13:40 Assessment and Plan Assessment and plan (1) Osteomyelitis of finger of right hand: Status: Acute (2) Septic arthritis of interphalangeal joint of finger of right hand: Status: Acute Assessment and plan: In brief, 39-year-old male with complex right middle finger infection combination of subacute-chronic DIP joint septic arthritis and osteomyelitis of the middle and distal phalanges. See previous notes and documentation for greater details. Vital signs remained stable, afebrile. Lab work CBC with differential ESR and CRP show improvements on antibiotics. Imaging x-rays, CT scan, and MRI confirm osteomyelitis and DIP joint involvement and the infection without any more proximal involvement. Clinically, finger is red indurated swollen about the DIP joint and a bit proximally distally. Limited participation in exam due to discomfort. Offered patient surgery again and attempt to help expedite recovery from this problem. He tells me he will be compliant with postoperative instructions including long?term antibiotic use for the bad polymicrobial infection. Could probably perform an irrigation and debridement around the DIP joint, remove infection from the joint, and probe for any softening or infection in or around the bones of the distal and middle phalanx. Do not plan any new cultures given the infection has already been cultured and identified with antibiotics working. Will likely leave small opening to allow for joint/wound drainage and minimize chance of recurrence. Patient did not have any questions for me, but states he would like to proceed with the surgery that I have detailed. Decision to proceed with right middle finger irrigation and debridement today. The risks, benefits, and alternatives were reviewed. Patient was counseled regarding pain management, expected postoperative course, and recovery timeline. Informed consent was obtained. He agrees and understands treatment plan. Plan on general anesthesia with long?acting digital nerve block for postoperative pain control. Discussed with primary hospitalist medical team. Objective Last Vital Signs Temp 98.2 F 03/22/25 07:31 Pulse 61 03/22/25 07:31 Resp 17 03/22/25 07:31 BP 112/66 03/22/25 07:31 Pulse Ox 97 03/22/25 07:31 Laboratory Results - last 24 hr 03/21/25 03/22/25 16:30 11:05 WBC 6.78 RBC 4.43 Hgb 11.9 L Hct 37.0 L MCV 84 MCH 26.9 L MCHC 32.2 RDW 14.5 H Plt Count 295 MPV 10.1 ESR 24 H C-Reactive Protein 1.42 H Random Vancomycin 6.8 Time Spent with Patient Time Spent with Patient: <25 minutes Time was spent: preparing to see the patient(eg.review tests), obtaining and/or reviewing separately otained hiistory, ordering medications,tests, procedures, referring, communicating with other health care transition manager, indepentently interpreting results and counseling the patient
--- NOTE | 2025-03-22 13:46 | ROE_ITS ---
Operative Note Operative Note PRE-OP DIAGNOSIS: Right middle finger complex chronic infection including DIP joint septic arthritis, distal phalanx osteomyelitis, and middle phalanx osteomyelitis POST-OP DIAGNOSIS: same PROCEDURE: 1. Right middle finger distal interphalangeal joint arthrotomy and drainage, CPT #67407 2. Right middle finger tip/distal phalanx bone and abscess drainage, CPT #50457 SURGEON: Addy Aguilar ANESTHESIA TYPE: Local By Surgeon and MAC Refer to Anesthesia Record ESTIMATED BLOOD LOSS: 2 TOURNIQUET TIME: 0 COMPLICATIONS: None Patient was transported to: PACU Patient's condition: stable Implants: None Indications: Please see complete medical record for details. Findings: Purulence/infection at the DIP joint and involving the majority of the middle and distal phalanges. Destroyed DIP joint and surrounding bones. Procedure Description: In the operating room, general anesthesia was induced. The patient was positioned supine on the operating room table. All bony prominences were well- padded. Skin coverage antibiotics had been administered within 1 hour on the hospital floor so were considered appropriate for preoperative use. The right hand was prepped and draped in the usual sterile fashion. The correct patient, procedure, and side of the procedure were all verified prior to incision. 10 cc of 0.25% ropivacaine containing epinephrine was injected as a digital block at the volar base of the middle finger. The middle finger tip prior pin site and radial wound were readily opened with a snap and pus expressed. A Tucker and various clamps were used to probe deeper and express additional necrotic and purulent material. The finger was then soaked for about 3 minutes and a Betadine surgery for solution, irrigated thoroughly with saline, and then manual pressure used to express additional purulence and friable necrotic mate rial from both wounds, mostly from the joint wound. A rongeur was used to remove few small pieces of loose bone and necrotic material from the joint access. An Esmarch was used from the proximal finger distally to confirm complete expression of material. The finger was then soaked in swirled again in surgery for Betadine solution for about 3 minutes and then again copiously irrigated with normal saline. There was no additional material or explanation to do for this chronic neglected problem. The tip of a piece of Xeroform was placed in the joint wound and the remainder over the wound the side and the finger wrapped in forward for gauze and tube gauze, which was secured with an Carl bandage. The patient awoke from anesthesia without complication and was back to the medical/surgical floor in a stable condition. The case was reviewed with the hospitalist medical team. Patient plans to leave [place] after this procedure. Hopefully, he will take antibiotics to treat the osteomyelitis, which is probably his worst problem at this point. If he is able to heal the bone infections, he might need something more formal done for the DIP joint like fusion, but the post-? infection resolution might result in a relatively comfortable and stiff finger. If he is unable to comply with medical management, he certainly risks loss of this finger/amputation?a surgery I do not perform. Dressing instructions were provided to the medical team who will provide supplies to given the best chance of success as he is likely leaving [place] shortly. These include dressing changes 1?2 times per day with a swirled/soak of the finger and 50: 50 mixture of hydroperoxide and water or Betadine and water for 10-20 minutes and allowed to dry. Reapply Xeroform if available or regular gauze and secure with tape or Carl bandage. Continue dressing changes and soaks until the wound is dry and healed. Date of Procedure: 03/22/25
[2025-03-22] MEDS: Bupivacaine 0.25% Pres-Free W/EPI 30 ML VIAL (14:00)
[2025-03-22 14:22] VITALS: BP 87/46; PULSE 55; RESP 14; TEMP 36.5; O2SAT 93
[2025-03-22 14:27] VITALS: BP 95/45; PULSE 61; RESP 13; TEMP 36.5; O2SAT 96
[2025-03-22 14:32] VITALS: BP 99/44; PULSE 64; RESP 15; TEMP 36.5; O2SAT 99
[2025-03-22 14:37] VITALS: BP 96/51; PULSE 61; RESP 15; TEMP 36.5
--- NOTE | 2025-03-22 14:43 | W.ANESPOSTOP ---
Postoperative Evaluation Date, Time and Location Date Performed: 03/22/25 Time Performed: 14:43 Patient Location: PACU Vital Signs Most Recent Imported Vital Signs: Most Recent Vital Signs Temp Pulse Resp BP Pulse Ox 36.5 C 61 13 96/51 L 99 03/22/25 14:37 03/22/25 14:37 03/22/25 14:27 03/22/25 14:37 03/22/25 14:32 Pain Score Most Recent Pain Score: Most Recent Pain Score Pain Level 0 03/22/25 14:37 Assessment Mental Status: Awake (Alert & Oriented to Patient Baseline) Airway and Respiratory Function: Patent airway with normal (patient baseline) respiratory exam Cardiovascular Function: Hemodynamically Stable Hydration Status: Adequately Hydrated Nausea & Vomiting: No Nausea or Vomiting Pain: Pt. Denies Any Pain Peripheral Nerve Block: Patient did not receive a nerve block
--- NOTE | 2025-03-22 15:41 | W.PM.DS.N ---
Date of service: 03/22/25 Time of Service: 15:41 DS: Diagnosis Discharge Diagnosis (1) Osteomyelitis of finger of right hand: Status: Acute (2) Septic arthritis of interphalangeal joint of finger of right hand: Status: Acute Discharge Plan Disposition Patient Disposition: Against Medical Advice Condition: Serious Discharge Details Reason For Visit: Infected DIP of the right third finger Admit Date/Time: 03/20/25 17:38 Admit Provider: Clovis Ureña Attending Provider: Clovis Ureña Primary Care Provider: Unknown,Unknown Hospital Course Hospital Course: This is a 39-year-old male patient with septic joint arthritis of his right third DIP with osteomyelitis of the medial and distal phalanges who was seen here multiple times with orthopedic consultation noncompliant and leaves AMA secondary to severe opioid addiction. There are other social components such as child custody for which he states is the reason for his noncompliance. He returned to the emergency department on March 20 underwent a surgical consultation with plan for OR debridement. He was admitted on vancomycin and meropenem. He was requiring high doses of oral and IV Dilaudid and OxyContin to control his symptoms. He was brought to the OR on 03/22 for irrigation and debridement. Postoperatively he requested to leave AGAINST MEDICAL ADVICE. In an effort to optimize his discharge plan he was given a dose of dalbavancin 1500 mg prior to discharge. He will be prescribed levofloxacin 750 mg daily in addition to linezolid 600 mg twice daily which should be resumed in a week and a half to complete a 6-week course of both these antibiotics to treat osteomyelitis based on previous culture. It is thought that ultimately he would require a amputation of this finger. He is declining to continue outpatient Suboxone stating I do not need it. He will be prescribed a week supply of Percocet to use for severe breakthrough pain. Unfortunately he left prior to receiving discharge instructions. Case management did try to reach out to him and was unable to reach him. We will send him a copy of his discharge instructions by mail. A verbal discharge plan was given to his mother over the phone as she is listed on his HIPAA paperwork. He was scheduled an outpatient appointment with his PCP for April 01, 2025. Discharge discussed with Dr. Ureña Home Meds and New Rx's Prescriptions: New levofloxacin 750 mg tablet 750 mg PO DAILY Qty: 42 0RF oxycodone-acetaminophen [Percocet] 5-325 mg tablet 1 tab PO Q6H PRNQty: 30 0RF Rx Instructions: can take 1-2 tabs every 6 hours for pain Continued linezolid 600 mg tablet 600 mg PO BID Qty: 28 0RF mirtazapine 30 mg tablet 30 mg PO HS Patient Comments: TAKE ONE TABLET BY MOUTH EVERY DAY gabapentin 100 mg capsule 100 mg PO TID Patient Comments: TAKE ONE CAPSULE BY MOUTH THREE TIMES A DAY clonidine HCl 0.1 mg tablet 0.1 mg PO PRN Patient Comments: TAKE TWO TABLETS BY MOUTH EVERY DAY NEEDED buprenorphine-naloxone [Suboxone] 8-2 mg film 1 film sublingual DAILY Patient Comments: PLACE ONE FILM UNDER THE TONGUE THREE TIMES A DAY oxycodone-acetaminophen [Percocet] 5-325 mg tablet 1 tab PO Q8H PRNQty: 10 0RF melatonin 3 mg capsule 3 mg PO HS PRNQty: 6 0RF Discharge Instructions Instructions: Osteomyelitis in adults, Sepsis in adults, Opioid use disorder Additional Instructions: you are leaving against advice and will need close outpatient follow up. it is important to take antibiotics as prescribed: start levofloxacin 750 mg daily for 6 weeks tomorrow. resume linezolid 600 mg twice daily starting Monday March 31, 2025 and take both antibiotics until TuesdayMay 01 unless directed otherwise by your doctor. this is to treat both blood stream infection and bone infection. if the bone does not heal, you will need to follow up with orthopedics for amputation of the finger. This would need to be done at a tertiary care facility and would not be able to be performed here. please monitor for signs of infection. you will be scheduled for an outpatient echocardiogram to look for heart vegetation of bacteria. You will review these results with your doctor. Wound care instructions Swirl/soak the tip of your finger in 50/50 solution of hydrogen peroxide and water or Betadine and water for about 10 to 20 minutes 1-2 times daily. Allow to dry completely then apply Xeroform and gauze to protect. Continue dressing changes and soaks until the wound is dry and healing Stand Alone Forms: Nursing Discharge Form Referrals: Norma Dunn [ NON-[facility] STAFF PHYSICIAN, Medicine] - 04/01/25 3:30 pm Unknown,Unknown [Primary Care Provider, Unknown] - 04/01/25 3:30 pm Referral Note: VERY IMPORTANT TO SCHEDULE FOLLOW UP WITH PCP Activity:: Activity as Tolerated Equipment/Supplies:: No Equipment Needed Diet:: As Tolerated Discharge Orders Discharge Orders: Discharge Order (Routine); Ordered 03/22/25 Ordered By: Samantha Malone Other Ambulatory Orders: US echocardiogram (Routine) Timeframe: 10 Day Facility: [facility] - Location: DIAGNOSTIC IMAGING Ordered By: Samantha Malone Discharge Data Discharge Date/Time-TO BE ENTERED AT DEPARTURE: 03/22/25 16:19 DS: Summary Time Spent with Patient providing and/or coordinating discharge services: Greater than 30 minutes Status at Discharge Functional status at discharge: independent ambulation Overall status at discharge: patient is not back to baseline Mental Status: mental status grossly normal Speech and Movement: speech and movement normal Mood: congruent mood Affect: normal affect Quality:SDOH Health Related Social Needs: Health related social needs transpo insecurity finding work Health related social needs details pt uses [facility] for everywhere Health related social needs details: pt uses [facility] for everywhere Exam Narrative Exam Narrative: Thin male chronically ill-appearing older than stated age no acute distress head is atraumatic eyes nonicteric noninjected neck full range of motion neurologic he is awake alert oriented no focal deficits psychiatric blunted mood and affect respirations even and unlabored cardiovascular regular rate and rhythm right finger wound not visualized dressing is clean dry and intact moving all extremities gait is steady Psych Mental Status: mental status grossly normal Speech and Movement: speech and movement normal Mood: congruent mood Affect: normal affect DS: Data Vitals/I&O Vitals and I&O: Vital Signs Temperature 36.5 C 03/22/25 14:37 Temperature Source Temporal Artery Scan 03/22/25 07:31 Pulse 61 03/22/25 14:37 Pulse Rhythm Regular 03/20/25 18:36 Respiratory Rate 15 03/22/25 14:37 Respiratory Effort Normal 03/20/25 18:36 Respiratory Depth Normal 03/20/25 18:36 Respiratory Pattern Normal 03/20/25 18:36 Blood Pressure 96/51 L 03/22/25 14:37 Blood Pressure Mean 81 03/22/25 07:31 Blood Pressure Position Sitting 03/20/25 17:27 Pulse Oximetry 99 03/22/25 14:32 Oxygen Delivery Method Room Air 03/22/25 14:37 Oxygen Flow Rate 0 03/22/25 07:31 Pain Level 0 03/22/25 14:37 Comment Pt asleep att. 03/22/25 02:00 Intake & Output 03/21/25 03/22/25 03/22/25 23:59 11:59 23:59 Intake Total 1650 / 2360 310 / 835 525 / 835 Output Total 700 / 1200 500 / 1200 Balance 1650 / 2360 -390 / -365 25 / -365 Weight 65 kg Intake: IV 410 / 820 310 / 835 525 / 835 Oral 1240 / 1540 Output: Urine 700 / 1200 500 / 1200 Other: Urine Color Yellow Yellow Urine Appearance Clear Clear Urine Odor None Comment independent independent, pt removed hat from toilet Emesis Description None Data Completed and Pending Labs on day of discharge: Labs from last 24 hours 03/22/25 03/21/25 11:05 16:30 WBC 6.78 RBC 4.43 Hgb 11.9 L Hct 37.0 L MCV 84 MCH 26.9 L MCHC 32.2 RDW 14.5 H Plt Count 295 MPV 10.1 ESR 24 H C-Reactive Protein 1.42 H Random Vancomycin 6.8 03/22/25 15:40 Blood Blood Culture - Pending 03/22/25 15:40 Blood Blood Culture - Pending Preliminary micro results at discharge 03/22/25 15:40 Blood Blood Culture - Pending 03/22/25 15:40 Blood Blood Culture - Pending 03/20/25 16:37 Blood Blood Culture - Preliminary Staphylococcus species 03/20/25 16:15 Blood Blood Culture - Preliminary NO GROWTH 24 HOURS PFSH All Active Problems (Updated 03/22/25 @ 15:53 by Samantha Malone NP) Bacteremia due to Staphylococcus (Acute) On deep vein thrombosis (DVT) prophylaxis (Acute) Full thickness burn of right middle finger (Acute) Osteomyelitis of finger of right hand (Acute) Wound infection (Acute) Tobacco use disorder (Chronic) 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 Time Spent with Patient Time Spent with Patient: 70-84 minutes4 Time was spent: preparing to see the patient(eg.review tests), obtaining and/or reviewing separately otained hiistory, ordering medications,tests, procedures, referring, communicating with other health physician primary care sports medicine, indepentently interpreting results, counseling the patient and care coordination
--- NOTE | 2025-03-22 16:10 | PDOC.CMDIS ---
Date of service: 03/22/25 Time of Service: 16:10 LACE Index Scoring Tool Questions: Length of Stay (in days): 2 Was the patient admitted via the E.D.?: Yes E.D. Visits: 5 Answers: Total Score: 9 Risk of Readmission: Low Risk Care Management Discharge Plan Reason for Hospitalization: Osteomylitis Discharge Plan: Timur has decided to discharge AMA. CM scheduled a hospital follow-up appointment with his PCP at [facility] for 04/01/25 @ 3:30. New [facility] RN for wound care and dressing supplies is ordered. Patient also agrees to follow up with [facility] for community support. Discharge info will be faxed to PCP office to support continuation of outpatient care. Patient/Family Education Needs: Review plan following AMA discharge, discuss ask me three. Services Needed at Discharge: Home Health Care Services (New [facility] RN, CM notified [facility]) SDOH Health Related Social Needs: Health related social needs transpo insecurity finding work Health related social needs details pt uses [facility] for everywhere Health related social needs details: pt uses [facility] for everywhere
== END 2025-03-22 16:19 | disposition left against medical advice (07) | DRG 506 ==
LOC: ER 18:23 → MS 18:23
PROVIDERS: Emergency Medicine Emergency Medical Services; Nurse Practitioner Family; Student in an Organized Health Care Education/Training Program; Admitting Provider Family Medicine; Emergency Provider Emergency Medicine; Responsible Provider Nurse Practitioner Acute Care; Visit Provider Family Medicine
PROC: 0R9W0ZZ Drainage of Right Finger Phalangeal Joint, Open Approach (ICD-10-PCS; CPT 26080; principal; 2025-03-22 13:15)
DX: M00.041 Staphylococcal arthritis, right hand (principal); M86.8X4 Other osteomyelitis, hand; Z59.811 Housing instability, housed, with risk of homelessness; L03.113 Cellulitis of right upper limb; R78.81 Bacteremia; B95.62 Methicillin resistant Staphylococcus aureus infection as the cause of diseases classified elsewhere; F19.10 Other psychoactive substance abuse, uncomplicated; Z59.82 Transportation insecurity; Z59.89 Other problems related to housing and economic circumstances; R45.89 Other symptoms and signs involving emotional state; Z73.89 Other problems related to life management difficulty; F17.290 Nicotine dependence, other tobacco product, uncomplicated; F51.05 Insomnia due to other mental disorder; J45.909 Unspecified asthma, uncomplicated; B96.89 Other specified bacterial agents as the cause of diseases classified elsewhere; T23.32 Burn of third degree of single finger (nail) except thumb; X08.8XXS Exposure to other specified smoke, fire and flames, sequela
CPT/HCPCS: 26080; 26011; 00123; 36415; 80048; 80053; 85027; 85652; 87040; 87077; 96365; 96367; 96375; 99285; J1650; 73130; 73201; 73220; 80202; 83605; 83735; 85025; 86140; 87186; 99222; 99233; 99239; J0696; J0875; J1100; J1171; J1885; J2060; J2183; J2185; J2405; J2704; J3373; J3490

== ENCOUNTER 2025-03-23 04:00 | Emergency (ER) | payer MEDICAID, SELFPAY ==
[2025-03-23 03:59] VITALS: PULSE 74; RESP 18; TEMP 36.7; O2SAT 99
[2025-03-23 04:04] VITALS: BP 112/53; PULSE 69; RESP 16; RESP 18; TEMP 37; O2SAT 98
--- NOTE | 2025-03-23 04:29 | W.ED.GENAD ---
Discharge Plan Disposition Patient Disposition: Eloped Condition: Stable Discharge Details Clinical Impression: Wound infection Primary Care Provider: Unknown,Unknown ED Provider: Charlie Meeks Home Meds and New Rx's Prescriptions: No Action levofloxacin 750 mg tablet 750 mg PO DAILY Qty: 42 0RF linezolid 600 mg tablet 600 mg PO BID Qty: 28 0RF oxycodone-acetaminophen [Percocet] 5-325 mg tablet 1 tab PO Q6H PRNQty: 30 0RF Rx Instructions: can take 1-2 tabs every 6 hours for pain mirtazapine 30 mg tablet 30 mg PO HS Patient Comments: TAKE ONE TABLET BY MOUTH EVERY DAY gabapentin 100 mg capsule 100 mg PO TID Patient Comments: TAKE ONE CAPSULE BY MOUTH THREE TIMES A DAY clonidine HCl 0.1 mg tablet 0.1 mg PO PRN Patient Comments: TAKE TWO TABLETS BY MOUTH EVERY DAY NEEDED buprenorphine-naloxone [Suboxone] 8-2 mg film 1 film sublingual DAILY Patient Comments: PLACE ONE FILM UNDER THE TONGUE THREE TIMES A DAY oxycodone-acetaminophen [Percocet] 5-325 mg tablet 1 tab PO Q8H PRNQty: 10 0RF melatonin 3 mg capsule 3 mg PO HS PRNQty: 6 0RF zolpidem 5 mg tablet 5 mg PO QHS PRN Patient Comments: 5 mg orally every day at bedtime As Needed HPI General Date/Time Provider Initiated Documentation: 03/23/25 04:12. HPI Narrative: The patient is a 39-year-old male, who returns to the emergency room this evening complaining of dizziness and weakness in the setting of recently having a surgery on his hand for a infected finger and leaving AGAINST MEDICAL ADVICE from the hospital. During my initial evaluation with the patient, he told me that the pain medications they gave me aren't doing shit. I explained to the patient that with routine IV opioid use (which is documented in his history and he admitted to), the pain medications might not be successful in controlling his pain. The patient became quite agitated and told me that I was being rude and judgmental. After continued beratement by the patient, I told him that I did not care what his opinion of me was and then asked what I could do to be helpful for him tonight in an attempte to redirect him. He immediately got up and told me he was leaving and was going to report me. He then gathered his belongings and left the department. Related Data Home Medications ?Medication ?Instructions ?Recorded ?Confirmed buprenorphine 8 mg-naloxone 2 mg 1 film sublingual DAILY 03/19/25 03/23/25 sublingual film (Suboxone) Held on 03/23/25. Instructions: Prescription Finished clonidine HCl 0.1 mg tablet 0.1 mg PO PRN 03/19/25 03/23/25 Held on 03/23/25. Instructions: Pt Stopped/Never Started gabapentin 100 mg capsule 100 mg PO TID 03/19/25 03/23/25 Held on 03/23/25. Instructions: Prescription Finished melatonin 3 mg capsule 3 mg PO HS PRN #6 caps 03/19/25 03/23/25 mirtazapine 30 mg tablet 30 mg PO HS 03/19/25 03/23/25 Held on 03/23/25. Instructions: Prescription Finished oxycodone-acetaminophen 5 mg-325 1 tab PO Q8H PRN #10 tabs 03/19/25 03/23/25 mg tablet (Percocet) levofloxacin 750 mg tablet 750 mg PO DAILY #42 tabs 03/22/25 03/23/25 Held on 03/23/25. Instructions: Prescription Finished linezolid 600 mg tablet 600 mg PO BID #28 tabs 03/22/25 03/23/25 Held on 03/23/25. Instructions: Prescription Finished oxycodone-acetaminophen 5 mg-325 1 tab PO Q6H PRN #30 tabs 03/22/25 03/23/25 mg tablet (Percocet) Held on 03/23/25. Instructions: Duplicate zolpidem 5 mg tablet 5 mg PO QHS PRN 03/23/25 03/23/25 Previous Rx's ?Medication ?Instructions ?Recorded melatonin 3 mg capsule 3 mg PO HS PRN #6 caps 03/19/25 oxycodone-acetaminophen 5 mg-325 1 tab PO Q8H PRN #10 tabs 03/19/25 mg tablet (Percocet) levofloxacin 750 mg tablet 750 mg PO DAILY #42 tabs 03/22/25 Held on 03/23/25. Instructions: Prescription Finished linezolid 600 mg tablet 600 mg PO BID #28 tabs 03/22/25 Held on 03/23/25. Instructions: Prescription Finished oxycodone-acetaminophen 5 mg-325 1 tab PO Q6H PRN #30 tabs 03/22/25 mg tablet (Percocet) Held on 03/23/25. Instructions: Duplicate Allergies Allergy/AdvReac Type Severity Reaction Status Date / Time No Known Allergies Allergy Verified 03/20/25 15:12 General Stated Complaint: GenMedical FRED: 2 Course Vital Signs Vital signs: Vital Signs Temperature 36.7 C 03/23/25 03:59 Pulse 74 03/23/25 03:59 Respiratory Rate 18 03/23/25 03:59 Pulse Oximetry 99 03/23/25 03:59 Temperature 37 C 03/23/25 04:04 Temperature Source Temporal Artery Scan 03/23/25 04:04 Pulse 69 03/23/25 04:04 Respiratory Rate 16 03/23/25 04:04 Respiratory Effort Normal, Non-Labored 03/23/25 04:04 Respiratory Depth Normal 03/23/25 04:04 Respiratory Pattern Normal 03/23/25 04:04 Blood Pressure 112/53 L 03/23/25 04:04 Blood Pressure Position Sitting 03/23/25 04:04 Pulse Oximetry 98 03/23/25 04:04 Oxygen Delivery Method Room Air 03/23/25 04:04 Oxygen Flow Rate 0 03/23/25 03:59 Pain Level 10 03/23/25 04:04 Medical Decision Making I was not able to evaluate this patient as he eloped after a very brief discussion with me in which he became acutely agitated when we discussed his drug use. Unfortunately, he was unable to be redirected into staying. 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) Asthma (Chronic) Severe substance use disorder (Chronic) Septic arthritis of interphalangeal joint of finger of right hand (Acute) Opiate withdrawal (Acute) Social History Smoking/Tobacco Use Status: Current every day Tobacco Type: cigarettes and e-cigarettes Smoking risk assessment performed?: Yes Alcohol Intake: never Drug use: Daily Substance use type: marijuana, crack/cocaine, heroin, opiates and IV drugs Details: state he has not used any drugs over a month ago Housing: house Do you feel safe at home: Yes Do you feel safe in your relationship?: Yes Additional Social history: unable to obtain
[2025-03-23 04:50] LABS: Glucose Negative (Negative)
[2025-03-23 04:51] LABS: C & S Indicated? No; RBC Negative HPF (0-2); WBC Negative HPF (0-5)
[2025-03-23 05:13] LABS: Cannabinoids THC Positive (Negative); METHADONE URINE SCREEN Negative (Negative)
--- NOTE | 2025-03-23 08:42 | NUR.NOTE ---
03/23/25 0839 per lab: blood culture, 1 bottle; MRSA positive. Result given to Dr Lawson. Nursing Note:
--- NOTE | 2025-03-23 09:02 | W.ED.FU ---
Date of service: 03/23/25 Time of Service: 09:02 Follow Up Plan: This patient was seen multiple times recently in the ED and was recently hospitalized. He signed out AMA yesterday following an operative intervention in which he had debridement of the right middle finger abscess with orthopedics. At the start of my shift he had a blood culture result return growing MRSA. He had come to the emergency department earlier this morning but eloped following a very brief conversation with his provider. I attempted to reach this patient at the number listed in his file. I called the number but unfortunately he did not answer. There was a voicemail set up which did not identify the patient by name. I left a number for the patient to call back to the emergency department.
== END 2025-03-23 04:28 | disposition left against medical advice (07) ==
PROVIDERS: Emergency Provider Emergency Medicine Emergency Medical Services
DX: R42 Dizziness and giddiness (principal); R53.1 Weakness; Z98.890 Other specified postprocedural states; L08.89 Other specified local infections of the skin and subcutaneous tissue
CPT/HCPCS: 99282; 99283; 80307; 81003; 81015